=== PATIENT | male | born 1950 | race Caucasian/White ===

== ENCOUNTER → 2022-01-12 14:42 | Outpatient (CLI) | payer MEDICARE, SELFPAY ==
--- NOTE | ~2022-01-12 | XR_ITS ---
XR chest 2V 01/12/2022 15:04 Indication: Covid 19. Dyspnea. Procedure: 2 view chest Comparison: No prior studies for comparison. Findings: Subtle patchy bilateral airspace disease, compatible with pneumonia. Heart size normal. No significant effusion or pneumothorax. No acute osseous abnormality. Impression: 1: Subtle patchy bilateral airspace disease, compatible with pneumonia. Reviewed, dictated and finalized at location B. Impression: 1: Subtle patchy bilateral airspace disease, compatible with pneumonia.
== END ==
PROVIDERS: PCP Family Medicine Adolescent Medicine; Visit Provider Family Medicine Adolescent Medicine
DX: U07.1 COVID-19 (principal); J12.82 Pneumonia due to coronavirus disease 2019; R06.00 Dyspnea, unspecified; R91.8 Other nonspecific abnormal finding of lung field
CPT/HCPCS: 71046

== ENCOUNTER 2024-06-29 14:36 | Outpatient (CLI) | payer MEDICARE, SELFPAY ==
--- NOTE | 2024-06-29 14:43 | ECHO_ITS ---
Patient Info Name: Gurmeet Pardo Age: 74 years : 1950 Gender: Male Ht: 75 in Wt: 261 lbs BSA: 2.53 m2 HR: 75 bpm BP: 126 / 56 mmHg Heart Rhythm: Sinus Rhythm Technical Quality: Good Exam Date: 06/29/2024 3:04 PM Exam Location: Echo Lab Patient Status: Outpatient Admit Date: 06/29/2024 Staff Ordering Physician: Diego Rangel DO Recruiting Intern: Edgar Colon RDCS Attending Provider: Diego Rangel DO Referring Physician: Juan Carlos TEE; Exam Type: CA echo doppler color flow Study Info Indications - heart disease, unspecified Complete two-dimensional, color flow and Doppler transthoracic echocardiogram is performed. Summary 1. Complete two-dimensional, color flow and Doppler transthoracic echocardiogram is performed. 2. Left ventricular chamber dimension is normal. 3. Left ventricular systolic function is normal, estimated at 55-60%. 4. There is moderate concentric increased left ventricular wall thickness. 5. The left ventricular diastolic function is grade I diastolic dysfunction. 6. E/e' 10 is mildly elevated. 7. There is moderate aortic valve sclerosis. 8. There is mild aortic valve stenosis with a peak velocity of 255 cm/s, mean gradient of 17 mmHg, and aortic valve area of 1.9 cm2. 9. There is trace aortic valve regurgitation. 10. The mitral valve has mildly calcified leaflets and mildly calcified annulus. 11. There is mild mitral valve regurgitation. 12. No pulmonary hypertension, estimated pulmonary arterial systolic pressure is 21 mmHg. Left Ventricle E/e' 10 is mildly elevated. Left ventricular chamber dimension is normal. Left ventricular systolic function is normal, estimated at 55-60%. There is moderate concentric increased left ventricular wall thickness. The left ventricular diastolic function is grade I diastolic dysfunction. Right Ventricle Right ventricular chamber dimension is normal. Right ventricular systolic function is normal. Left Atria Left atrial chamber dimension is normal. Right Atria Right atrial chamber dimension is normal. Aortic Valve The aortic valve is trileaflet. There is moderate aortic valve sclerosis. There is mild aortic valve stenosis with a peak velocity of 255 cm/s, mean gradient of 17 mmHg, and aortic valve area of 1.9 cm2. There is trace aortic valve regurgitation. Pulmonic Valve There is no pulmonic regurgitation. Mitral Valve The mitral valve has mildly calcified leaflets and mildly calcified annulus. There is no mitral valve stenosis. There is mild mitral valve regurgitation. Tricuspid Valve There is no tricuspid valve regurgitation. No pulmonary hypertension, estimated pulmonary arterial systolic pressure is 21 mmHg. Pericardium/Pleural There is no pericardial effusion. Inferior Vena Cava Normal inferior vena cava with >50% collapse upon inspiration consistent with normal right atrial pressure, 5 mmHg. Aorta The aortic root size at the sinus of Valsalva is normal. Left Ventricular Outflow Tract Name Value Normal LVOT 2D LVOT Diameter 2.2 cm LVOT Doppler LVOT Peak Gradient 4 mmHg LVOT Mean Gradient 3 mmHg LVOT VTI 28 cm LVO
== END 2024-06-29 14:37 | disposition home or self-care (01) ==
PROVIDERS: PCP Family Medicine Adolescent Medicine; Visit Provider Internal Medicine Cardiovascular Disease
DX: I08.0 Rheumatic disorders of both mitral and aortic valves (principal)
CPT/HCPCS: 93306

== ENCOUNTER 2025-02-25 08:24 | Outpatient (CLI) | payer MEDICARE, SELFPAY ==
--- NOTE | 2025-02-25 08:28 | ECHO_ITS ---
Patient Info Name: Gurmeet Pardo Age: 75 years : 1950 Gender: Male Ht: 75 in Wt: 270 lbs BSA: 2.58 m2 HR: 72 bpm BP: 137 / 61 mmHg Technical Quality: Fair Exam Date: 02/25/2025 8:57 AM Exam Location: Echo Lab Patient Status: Outpatient Admit Date: 02/25/2025 Staff Ordering Physician: Diego Rangel DO Secondary Market Manager: Irma Hunter RDCS Attending Provider: Diego Rangel DO Referring Physician: Juan Carlos TEE; Exam Type: CA echo doppler color flow Study Info Indications I35.0 - Nonrheumatic aortic (valve) stenosis Complete two-dimensional, color flow and Doppler transthoracic echocardiogram is performed. Summary 1. Complete two-dimensional, color flow and Doppler transthoracic echocardiogram is performed. 2. Left ventricular chamber dimension is normal. 3. Left ventricular systolic function is normal, estimated at 55-60%. 4. There is moderate concentric increased left ventricular wall thickness. 5. The left ventricular diastolic function is grade I diastolic dysfunction. 6. E/e' 19 is elevated. 7. Left atrial chamber dimension is moderately enlarged. 8. There is severe aortic valve sclerosis. 9. There is moderate aortic valve stenosis with a peak velocity of 265 cm/s, mean gradient of 19 mmHg, and aortic valve area of 1.0 cm2. 10. The mitral valve has severely calcified annulus. 11. There is trace mitral valve regurgitation. 12. There is trace tricuspid valve regurgitation. 13. No pulmonary hypertension, estimated pulmonary arterial systolic pressure is 32 mmHg. Left Ventricle E/e' 19 is elevated. Left ventricular chamber dimension is normal. Left ventricular systolic function is normal, estimated at 55-60%. There is moderate concentric increased left ventricular wall thickness. The left ventricular diastolic function is grade I diastolic dysfunction. Right Ventricle Right ventricular chamber dimension is normal. Right ventricular systolic function is normal. Left Atria Left atrial chamber dimension is moderately enlarged. Right Atria Right atrial chamber dimension is normal. Aortic Valve The aortic valve is trileaflet. There is severe aortic valve sclerosis. There is moderate aortic valve stenosis with a peak velocity of 265 cm/s, mean gradient of 19 mmHg, and aortic valve area of 1.0 cm2. There is no aortic valve regurgitation. Pulmonic Valve There is no pulmonic regurgitation. Mitral Valve The mitral valve has severely calcified annulus. There is no mitral valve stenosis. There is trace mitral valve regurgitation. Tricuspid Valve There is trace tricuspid valve regurgitation. No pulmonary hypertension, estimated pulmonary arterial systolic pressure is 32 mmHg. Pericardium/Pleural There is no pericardial effusion. Inferior Vena Cava Normal inferior vena cava with >50% collapse upon inspiration consistent with normal right atrial pressure, 5 mmHg. Aorta The aortic root size at the sinus of Valsalva is normal. Left Ventricular Outflow Tract Name Value Normal LVOT 2D LVOT Diameter 1.9 cm LVOT Doppler LVOT Peak Gradient 3 mmHg LVOT Mean Gradient 2 mmHg LVOT VTI 26 cm LVOT VTI/AV VTI Ratio 0.3 LVOT Stroke Volume 75 ml LVOT CO 5.5 l/min LVOT CI 2.1 l/min/m2 Pulmonic Valve Name Value Normal RVOT Doppler RVOT Peak Gradient 3 mmHg PV Doppler PV Peak Gradient 7 mmHg Mitral Valve Name Value Normal MV Doppler MV Decel [place] 748 cm/s2 MV PHT 46 ms MV Area (PHT) 4.8 cm2 4.0-5.0 MV Diastolic Function MV E Peak Velocity 118 cm/s MV A Peak Velocity 135 cm/s MV E/A 0.9 MV Decel Time 157 ms Tricuspid Valve Name Value Normal TV Regurgitation Doppler TR Peak Velocity 262 cm/s TR Peak Gradient 27 mmHg Estimated PAP/RSVP RA Pressure 5 mmHg <=5 PA Systolic Pressure 32 mmHg <36 RV Systolic Pressure 32 mmHg <36 Aorta Name Value Normal Ascending Aorta Ao Root Diameter (MM) 3.3 cm Ao Root Diam Index (MM) 1.3 cm/m2 Aortic Valve Name Value Normal AV Doppler AV Peak Velocity 265 cm/s AV Peak Gradient 28 mmHg AV Mean Gradient 19 mmHg AV VTI 75 cm AV Area (Cont Eq VTI) 1.0 cm2 >=3.0 AV Area (Cont Eq Nick) 1.1 cm2 AV Regurgitation 2D LVOT Area 2.9 cm2 Ventricles Name Value Normal LV Dimensions 2D/MM IVS Diastolic Thickness (2D) 1.7 cm 0.6-1.0 IVS Diastole Thickness (MM) 1.5 cm 0.6-1.0 LVID Diastole (2D) 4.4 cm 4.2-5.8 LVID Diastole (MM) 7.2 cm 4.2-5.8 LVIW Diastolic Thickness (2D) 1.2 cm 0.6-1.0 LVIW Diastolic Thickness (MM) 1.4 cm 0.6-1.0 LVID Systole (2D) 3.4 cm 2.5-4.0 LVID Systole (MM) 5.1 cm 2.5-4.0 LVOT Diameter 1.9 cm LV Mass (2D Cubed) 254.93 g 88.00-224.00 LV Mass Index (2D Cubed) 99 g/m2 49-115 Relative Wall Thickness (2D) 0.56 LV Mass (MM Cubed) 576.27 g 88.00-224.00 LV Mass Index (MM Cubed) 223 g/m2 49-115 Relative Wall Thickness (MM) 0.40 LV Fractional Shortening/Ejection Fraction 2D/MM LV Fractional Shortening (2D) 22 % 25-43 LV Fractional Shortening (MM) 29 % 25-43 LV EF (MM Teicholz) 55 % 52-72 LV EF (2D Teicholz) 46 % 52-72 LV Diastolic Volume (4C MOD) 184 ml LV EF (4C MOD) 38 % LV Diastolic Volume (2C MOD) 188 ml LV EF (2C MOD) 47 % LV Diastolic Volume (BP MOD) 187 ml 62-150 LV Diastolic Volume Index (BP MOD) 73 ml/m2 34-74 LV Systolic Volume (BP MOD) 109 ml 21-61 LV Systolic Volume Index (BP MOD) 42 ml/m2 11-31 LV EF (BP MOD) 42 % 52-72 LV Diastolic Length (4C) 10.6 cm LV Systolic Length (4C) 10.0 cm LV Stroke Volume (4C MOD) 70 ml Atria Name Value Normal LA Dimensions LA Dimension (MM) 4.9 cm 3.0-4.1 LA Volume (4C A-L) 109 ml LA Volume (BP A-L) 106 ml RA Dimensions RA Area (4C) 17.7 cm2 <=18.0 Report Signatures
--- OUTSIDE RECORDS SUMMARY | 2025-02-25 08:39 | XMS_ITS | Clinical Summary ---
Author Organization [facility] Address [address] [place] [address] Care Team Providers Care Grip Assembler Name Role Phone Kyler Duran MD Primary Care Provider + Kush Ugalde MD Unavailable [phone] Source Comments [facility],non-owned Affiliates and Associated Physician Practices is amultiple site organization consisting of ambulatory clinics and hospital sitesin [place], [place], [place] and [place]. This disclosure is being madepursuant to the Care Everywhere program and may not contain all information available regarding this patient. Last updated 18.[facility] DEQ Allergies No known active allergies Medications * Be aware that medications may not be up to date on this document. Alwaysverify current medications with the patient. metFORMIN ER 24hr (GLUCOPHAGE XR) 500 MG tablet Take 1 (one) tablet by mouth daily with dinner Active atorvastatin (LIPITOR) 80 MG tablet Take 1 (one) tablet by mouth at bedtime Active PARoxetine (PAXIL) 20 MG tablet Take 2 (two) tablets by mouth at bedtime 2 Active gabapentin (Neurontin) 300 MG capsule Take 1 (one) capsule by mouth 2 times daily Active traZODone (Desyrel) 100 MG tablet Take 1 (one) tablet by mouth at bedtime Active Nutritional Supplements (Glucerna Shake) LIQD Take 1 (one) Each by mouth 2 times daily 4 Active carvedilol (Coreg) 25 MG tablet Take 0.5 (one-half) tablet by mouth 2 times daily 4 Active pantoprazole EC (Protonix) 40 MG tablet Take 1 (one) tablet by mouth 2 times daily 60 tablet 3 4 Active potassium chloride ER (Klor-Con M) 20 MEQ tablet Take 1 (one) tablet by mouth daily with breakfast 30 tablet 3 4 Active furosemide (Lasix) 20 MG tablet Take 1 (one) tablet by mouth once daily 30 tablet 3 4 Active collagenase (Santyl) 250 UNIT/GM ointmentIndicati ons:Dermal Ulcer,Wound Care,Wound Healing Apply to affected area once daily Reasons: Skin Ulcer, Wound Care, Wound Healing 30 g 2 4 Active Active Problems Problem Noted Date Diagnosed Date Acute pulmonary edema 11/30/2023 Congestive heart failure, un specified HF chronicity, unspecified heart failure type 11/30/2023 Acute respiratory failure with hypoxia 4 Osteoarthritis of right knee 02/02/2022 Immunizations Immunization Administration Dates Next Due INFLUENZA VACCINE, ADJUVANTE D, QUADR. (FLUAD QUADRIVALENT; 65Y+) (AIIV4) 12/14/2023(Deferred: See Comments - see comment) INFLUENZA VACCINE, QUADR. (F LUZONE; FLULAVAL; FLUARIX; AFLURIA QUADRIVALENT; 6MO+), 0.5 ML (IIV4) 12/14/2023(Deferred: See Comments - patient's refused flu shot for now) Social History Tobacco Use Types Packs/Day Years Used Date Smoking Tobacco: Unknown Tobacco Cessation:Counseling Given: Yes AUDIT-C Answer Date Recorded Q1: How often do you have a drink containing alcohol? Patient unable to answer 12/06/2023 Q2: How many drinks containi ng alcohol do you have on a typical day when you are drinking? Patient unable to answer Q3: How often do you have si x or more drinks on one occasion? Patient unable to answer 12/06/2023 Overall Financial Resource Strain (CARDIA) Answe r Date Recorded How hard is it for you to pa y for the very basics like food, housing, medical care, and heating? Not hard at all 12/01/2023 PHQ-2 Answer Date Recorded Patient Health Questionnaire-2 Score 0 01/02/2024 [facility] Occupat ional Health - Occupational Stress Questionnaire Answer Date Recorded Do you feel stress - tense, restless, nervous, or anxious, or unable to sleep at night because your mind is troubled all the time - these days? Patient unable to answer 12/06/2023 Hunger Vital Sign Answer Date Recorded Within the past 12 months, y ou worried that your food would run out before you got the money to buy more. Never true 12/01/19 24 Within the past 12 months, t he food you bought just didn't last and you didn't have money to get more. Never true 12/01/2023 PRAPARE - Transportation Answer Date Re corded In the past 12 months, has l ack of transportation kept you from medical appointments or from getting medications? No 10/2023 In the past 12 months, has l ack of transportation kept you from meetings, work, or from getting things needed for daily living? No 12/01/2023 Housing Stability Vital Sign Answer Bryn e Recorded In the last 12 months, was t here a time when you were not able to pay the mortgage or rent on time? No 12/06/2023 In the last 12 months, how many places have you lived? 1 12/06/2023 In the last 12 months, was t here a time when you did not have a steady place to sleep or slept in a group home (including now)? No 12/06/2023 Sex and Gender Information Value Date Recorded Sex Assigned at Not on file Legal Sex Male 6:59 AM GREEN CHAIN MARKER Gender Identity Not on file Sexual Orientation Not on file Last Filed Vital Signs Vital Sign Reading Time Taken Comments Blood Pressure 124/58 01/12/2024 11:16 AM CDT Pulse 98 01/12/2024 11:16 AM CDT Temperature 36.3 C (97.4 F) 01/12/2024 5:20 AM CDT Respiratory Rate 18 01/12/2024 11:1 6 AM CDT Oxygen Saturation 98% 01/12/2024 11: 16 AM CDT Inhaled Oxygen Concentration 40% 12/28/2023 4:00 AM GREEN CHAIN MARKER Weight 117.8 kg (259 lb 12. 8 oz) 01/07/2024 4:00 AM GREEN CHAIN MARKER Height 190.5 cm (6' 3 ) 01/03/2024 4:09 AM GREEN CHAIN MARKER reentered for BMI Body Mass Index 32.47 01/03/2024 4:09 AM GREEN CHAIN MARKER Plan of Treatment Health Maintenance Due Date Last Done Comments HEPATITIS C SCREENING 02/01/1967 DTAP/TDAP/TD VACCINES (1 - Tdap) 02/06/1968 PNEUMOCOCCAL VACCINE 50+ (1 of 1 - PCV) 1999 ZOSTER VACCINE (1 of 2) 1999 Respiratory Syncytial Virus (RSV) Vaccine Pt: or over 60 yrs (1 - 1-dose 75+ series) 02/06/2024 COVID-19 VACCINE (1 - season) 2024 DEPRESSION SCREENING 10/31/2024 MEDICARE AWV CALENDAR YEAR 2024 INFLUENZA VACCINE (Season Ended) 2025 08/17/2022, 08/21/2020, 10/09/2019, Additional history exists HEPATITIS B VACCINE Aged Out No longe r eligible based on patient's age to complete this topic HIB VACCINE Aged Out No longer eligi ble based on patient's age to complete this topic HPV VACCINE Aged Out No longer eligi ble based on patient's age to complete this topic MENINGOCOCCAL (Group B) VACCINE SHARED DECISION-MAKING Aged Out No longer eligible based on patient's age to complete this topic MENINGOCOCCAL GROUPS A/C/Y/W VACCINE Aged Out No longer eligible based on patient's age to complete this topic Additional Health Concerns Infection Onset Date Last Indicated MRSA Hx Comment:sputum 12/28/2023 01/03/2024 Insurance [facility] MANAGED MEDICARE ADV Advance Directives * Full Code (Latest Code Status on File) Date Activated Date Inactivated Comments 11/30/2023 6:52 PM 01/12/2024 4:02 PM Care Teams Grip Assembler Relationship Specialty Start Date End Date Kyler Duran MD [address] [place] [address] PCP - General Family Medicine 05/11/22 [place] [id number] [id number] Surgeon Orthopedic Surgery 05/11/22
--- OUTSIDE RECORDS SUMMARY | 2025-02-25 08:39 | XMS_ITS | CONTINUITY OF CARE DOCUMENT ---
Author Name franklinsaundra franklinsaundra Address Unknown Organization [facility] Address [address] [place] [address] Phone [phone] Care Team Providers Care Hardware Manager Name Role Phone Spencer Casas MD Unavailable [phone] NAHUN CADE MD Unavailable [phone] NAHUN CADE MD Unavailable PROBLEMS Condition Status Date Provider Notes Prediabetes-03/08/22 Glu 207 active Benito priest RN LAE active Elissa Jimenez Aortic stenosis, mild active Elissa apgeeyer HTN active Spencer Casas MD Hyperlipidemia active Spencer Casas MD CAROTID-08/07 NEG completed - Spencer Casas MD CAD - 04/2010 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, 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, 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 Spencer Casas MD Leg pain - 01/11 TRESA's MILD/MOD DISEASE B/L completed - Bartolome Alicia DIZZINESS completed - Bartolome Alicia Shortness of breath completed - Bartolome Alicia COPD active Bartolome Alicia Carotid artery stenosis, <50 % ICA b/l active Bartolome Alicia Myocardial infarction 12/1997 active Javier Garcia Obesity active Bartolome Alicia Tobacco use, quit active Bartolome Alicia PVD active Spencer Casas MD Leg edema active Elissa Jimenez CHF active Elissa Jimenez ENCOUNTERS Date Type Provider Location Encounter Diag nosis - In-person encounter Office Visit Spencer Casas MD [facility] - In-person encounter Office Visit Spencer Casas MD [facility] - In-person encounter Office Visit Spencer Casas MD [facility] - In-person encounter Office Visit Spencer Casas MD [facility] CHF - In-person encounter Office Visit Spencer Casas MD [facility] Leg edema - In-person encounter Office Visit Spencer Casas MD [facility] - In-person encounter Office Visit Spencer Casas MD [facility] Leg pain - 01/11 TRESA's MILD/MOD DISEASE B/LDIZZINESSShortness of breath - In-person encounter Office Visit Spencer Casas MD [facility] - In-person encounter Office Visit Spencer Casas MD [facility] PVD - In-person encounter Office Visit Spencer Casas MD [facility] HTNHyperlipidemiaCAD - 04/2010 CATH, 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, CIRC and OM STENTSCarotid artery stenosis, <50% ICA b/lMyocardial infarction 12/1997ObesityTobacco use, quit - In-person encounter Office Visit Spencer Casas MD [facility] CAROTID-08/07 NEGCAD - 04/2010 CATH, 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, CIRC and OM STENTSCOPD - In-person encounter Office Visit Spencer Casas MD [facility] - In-person encounter Office Visit Spencer Casas MD [facility] - In-person encounter Office Visit Spenecr Casas MD [facility] HTN - In-person encounter Office Visit Spencer Casas MD [facility] - In-person encounter Office Visit Spencer Casas MD [facility] - In-person encounter Office Visit Spencer Casas MD [facility] - In-person encounter Office Visit Yan Montelongo MD [facility] - In-person encounter Office Visit Yan Montelongo MD [facility] - In-person encounter Office Visit Spencer Casas MD [facility] DIZZINESS - In-person encounter Office Visit Spencer Casas MD [facility] CAD - 04/2010 CATH, 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, CIRC and OM STENTSLeg pain - 01/11 TRESA's MILD/MOD DISEASE B/L - In-person encounter Office Visit Spencer Casas MD [facility] Hyperlipidemia - In-person encounter Office Visit Spencer Casas MD [facility] Hyperlipidemia VITAL SIGNS Date Observation Value Provider Body Mass Index (Ratio) 37.10 kg/m2 Carolyne Stephen blood pressure, cuff size regular [facility] [place] blood pressure, diastolic 69 mm[Hg] [facility] [place] blood pressure, systolic 175 mm[Hg] [facility] pulse rate 68 /min [facility] oxygen saturation, oximetry 96 % [facility] respiratory rate E&M 15 /min Liana Bone illecassidy weight E&M 289 [lb_av] [facility] height E&M 74 [in_i] [facility] Body Mass Index (Ratio) 37.36 kg/m2 Spencer Casas MD blood pressure, cuff size regular [facility] blood pressure, diastolic 75 mm[Hg] Ja rret blood pressure, systolic 161 mm[Hg] Jar ret pulse rate 74 /min Gokul respiratory rate E&M 16 /min Gokul oxygen saturation, oximetry 94 % weight E&M 291 [lb_av] Gokul height E&M 74 [in_i] Gokul Body Mass Index (Ratio) 38.13 kg/m2 Grah robbie Stephen blood pressure, diastolic 78 mm[Hg] [place] [facility] blood pressure, systolic 170 mm[Hg] Suzette blood pressure, cuff size regular [facility] blood pressure, diastolic 78 mm[Hg] Ja rret blood pressure, systolic 170 mm[Hg] Lui pulse rate 75 /min Gokul respiratory rate E&M 12 /min Gokul oxygen saturation, oximetry 95 % weight E&M 297 [lb_av] Gokul height E&M 74 [in_i] Gokul Body Mass Index (Ratio) 36.82 kg/m2 Ayleen Jimenez blood pressure, diastolic -1 mm[Hg] [place] hitchcockLogrick blood pressure, systolic 167 mm[Hg] Suzette Lewisogrick blood pressure, diastolic 74 mm[Hg] St isabel Russo blood pressure, systolic 167 mm[Hg] Alyson Russo oxygen saturation, oximetry 96 % Katy Russo respiratory rate E&M 16 /min Katy mock pulse rate 75 /min Katy Russo weight E&M 286.8 [lb_av] Katy Russo height E&M 74 [in_i] Katy Russo blood pressure, diastolic 64 mm[Hg] Sa ra Jones blood pressure, systolic 149 mm[Hg] Josh a Jones oxygen saturation, oximetry 95 % Odalys Jones respiratory rate E&M 16 /min Odalys Si ms pulse rate 84 /min Odalys Jones blood pressure, cuff size regular Sa ra Jones height E&M 74 [in_i] Odalys Jnoes Body Mass Index (Ratio) 37.61 kg/m2 Ayleen enriquez Barbara blood pressure, diastolic 84 mm[Hg] Li nkLogic blood pressure, systolic 142 mm[Hg] Suzette kLogic blood pressure, cuff size large Mi steffany [place] blood pressure, diastolic 84 mm[Hg] Mi steffany [place] blood pressure, systolic 142 mm[Hg] Fritz keyla [place] oxygen saturation, oximetry 99 % Lesly Alicea respiratory rate E&M 16 /min Zahra Alicea pulse rate 79 /min Lesly marlow weight E&M 293 [lb_av] Lesly marlow height E&M 74 [in_i] Lesly marlow Body Mass Index (Ratio) 37.10 kg/m2 Suman Alicia blood pressure, resting Yes Suman Alicia blood pressure, diastolic 76 mm[Hg] Fe clarke Post blood pressure, systolic 148 mm[Hg] Fel icia Post oxygen saturation, oximetry 96 % Sena Psot pulse rate 79 /min Sena Post respiratory rate E&M 16 /min Sena Post temperature E&M 97.2 [degF] Sena Post weight E&M 289 [lb_av] Sena Post height E&M 74 [in_i] Sena Post Body Mass Index (Ratio) 36.07 kg/m2 Jake South pulse rate 102 /min Coretta Randall l oxygen saturation, oximetry 16 % Coretta Agustin respiratory rate E&M 102 /min Coretta Agustin blood pressure, cuff size regular Cy belinda Agustin blood pressure, diastolic 80 mm[Hg] Cy belinda Agustin blood pressure, systolic 162 mm[Hg] Fransisca arlin Agustin weight E&M 281 [lb_av] Coretta Mylesbel l height E&M 74 [in_i] Coretta Campbel l Body Mass Index (Ratio) 36.84 kg/m2 Suman Alicia blood pressure, diastolic 96 mm[Hg] Da fransisca Sunny blood pressure, systolic 182 mm[Hg] Dac ia Sunny oxygen saturation, oximetry 95 % Claribel Sunny respiratory rate E&M 18 /min Claribel V oss pulse rate 88 /min Claribel Sunny weight E&M 287 [lb_av] Claribel Sunny height E&M 74 [in_i] Claribel Sunny Body Mass Index (Ratio) 37.23 kg/m2 Suman Alicia weight E&M 290 [lb_av] Spencer Casas MD blood pressure, resting Yes Spencer Casas MD blood pressure, cuff size large Annmarie Hull blood pressure, diastolic 90 mm[Hg] Annmarie Hull blood pressure, systolic 160 mm[Hg] Ruchi Hull oxygen saturation, oximetry 96 % Ana Hull respiratory rate E&M 16 /min Ana Hull pulse rate 88 /min Ana Hull height E&M 74 [in_i] Ana Hull blood pressure, diastolic 80 mm[Hg] Leroy Smith Hilton blood pressure, systolic 154 mm[Hg] Debbie Hilton pulse rate 92 /min Mo bahena oxygen saturation, oximetry 96 % Mo Hilton respiratory rate E&M 18 /min Machelle Hilton Body Mass Index (Ratio) 38 kg/m2 Marnie Hilton weight E&M 296 [lb_av] Mo Downs ellenfaith Body Mass Index (Ratio) 37.49 kg/m2 Sloan shavonne Ridley blood pressure, diastolic 68 mm[Hg] Ke rri Khai blood pressure, systolic 150 mm[Hg] Reba Ridley pulse rate 61 /min Janell loredoer oxygen saturation, oximetry 96 % Janell Ridley respiratory rate E&M 16 /min Janell regalado weight E&M 292 [lb_av] Janell Ling lder weight E&M 292 [lb_av] Spencer Casas MD blood pressure, diastolic 62 mm[Hg] Isaac Chance RN blood pressure, systolic 140 mm[Hg] Benito Chance RN pulse rate 92 /min Benito Chance RN oxygen saturation, oximetry 98 % Benito Chance RN respiratory rate E&M 16 /min Benito harper RN Body Mass Index (Ratio) 35.69 kg/m2 Sloan shavonne Ridley blood pressure, diastolic 66 mm[Hg] Ke ulyssesi Khai blood pressure, systolic 132 mm[Hg] Reba Ridley pulse rate 78 /min Janell Hernandeztammy loredoer oxygen saturation, oximetry 95 % Janell Khia respiratory rate E&M 16 /min Janell Greene fabricio weight E&M 277 [lb_av] Janell Sushil lder height E&M 74 [in_i] Janell Sushil lder blood pressure, diastolic 68 mm[Hg] Isaac Chance RN blood pressure, systolic 131 mm[Hg] Benito Chance RN pulse rate 75 /min Benito Chance RN oxygen saturation, oximetry 95 % Benito Chance RN respiratory rate E&M 16 /min Benito harper RN weight E&M 282 [lb_av] Benito Chance RN blood pressure, diastolic 67 mm[Hg] Isaac Chance RN blood pressure, systolic 131 mm[Hg] Benito Chance RN pulse rate 80 /min Benito Chance RN oxygen saturation, oximetry 95 % Benito Chance RN respiratory rate E&M 18 /min Benito harper RN weight E&M 287 [lb_av] Benito Chance RN blood pressure, diastolic 73 mm[Hg] Jermey Vyas blood pressure, systolic 127 mm[Hg] Walter Vyas pulse rate 89 /min Sarah Vyas oxygen saturation, oximetry 96 % Sarah Vyas respiratory rate E&M 16 /min Fadi Vyas weight E&M 271 [lb_av] Sarah Vyas blood pressure, diastolic, left arm 70 mm [Hg] Yue Choi blood pressure, systolic, left arm 103 mm [Hg] Yue Cohi blood pressure, diastolic, right arm 62 m m[Hg] Yue Choi blood pressure, systolic, right arm 87 mm [Hg] Yue Choi blood pressure, diastolic 70 mm[Hg] Ca christa Jimbo blood pressure, systolic 109 mm[Hg] Car linh Jimbo pulse rate 114 /min Yue Choi oxygen saturation, oximetry 95 % Yue Choi respiratory rate E&M 20 /min Yue Dipika acevedo weight E&M 268 [lb_av] Yue Choi blood pressure, diastolic 65 mm[Hg] Mikayla seph [place] blood pressure, systolic 138 mm[Hg] Ayden cox [place] pulse rate 90 /min Hiram [place] oxygen saturation, oximetry 97 % Hiram [place] respiratory rate E&M 16 /min Hiram [place] weight E&M 271 [lb_av] Hiram [place] blood pressure, diastolic 69 mm[Hg] Isaac Chance RN blood pressure, systolic 129 mm[Hg] Benito Chance RN pulse rate 77 /min Benito Chance RN oxygen saturation, oximetry 96 % Benito Chance RN respiratory rate E&M 16 /min Benito harper RN weight E&M 278 [lb_av] Benito Chance RN pulse rate 90 /min Benito Chance RN oxygen saturation, oximetry 95 % Benito Chance RN blood pressure, diastolic 71 mm[Hg] Isaac Chance RN blood pressure, systolic 130 mm[Hg] Benito Chance RN respiratory rate E&M 22 /min Benito harper RN weight E&M 275 [lb_av] Benito Chance RN blood pressure, diastolic 66 mm[Hg] Isaac Chance RN blood pressure, systolic 127 mm[Hg] Benito Chance RN pulse rate 76 /min Benito Chance RN oxygen saturation, oximetry 97 % Benito Chance RN respiratory rate E&M 18 /min Oct Dajuan harper RN weight E&M 270 [lb_av] Benito Robson [facility] Allergy Name Onset Date Reaction Criticality Status JARDIANCE infection High Criticality active RESULTS Date Observation Value Provider Reference Range Interpretation Location hemoglobin A1C, blood, as % of total hemoglobin 5.4 % OF TOTAL HGB [facility] <5.7 Normal C-reactive protein, by highly sensitive test 1.1 mg/L [facility] Normal calcium, serum 9.6 mg/dL [facility] 8.6-10.3 Normal carbon dioxide, venous blood 30 mmol/L [facility] 20-32 Normal chloride, serum 100 mmol/L [facility] 98-110 Normal potassium, serum 5.1 mmol/L [facility] 3.5-5.3 Normal sodium, serum 136 mmol/L [facility] 135-146 Normal urea nitrogen/creatinine ratio, serum SEE NOTE: (calc) [facility] 6-22 creatinine, serum 0.83 mg/dL [facility] 0.70-1.28 Normal urea nitrogen, blood 18 mg/dL [facility] 7-25 Normal blood glucose, random 121 mg/dL [facility] 65-139 Normal NT-pro BNP 1007 [facility] <125 High cholesterol, non-HDL, total 77 MG/DL (CALC) [facility] <130 Normal cholesterol/HDL ratio, serum, percent 2.3 (calc) [facility] <5.0 Normal LDL cholesterol, serum 61 MG/DL (CALC) [facility] Normal triglyceride, serum, fasting 79 mg/dL [facility] <150 Normal HDL cholesterol, serum 61 mg/dL [facility] > OR = 40 Normal cholesterol, serum 138 mg/dL [facility] <200 Normal microalbumin/creati nine ratio, urine 39 MCG/MG CREAT [facility] <30 High microalbumin/total urine volume 40 mg/L [facility] Units converted. See lab report for original value. Normal creatinine, random, urine 102 mg/dL [facility] 20-320 Normal NT-pro BNP 775 [facility] High calcium, serum 9.8 mg/dL [facility] 8.6-10.3 Normal carbon dioxide, venous blood 30 mmol/L [facility] 20-32 Normal chloride, serum 97 mmol/L [facility] 98-110 Low potassium, serum 4.6 mmol/L [facility] 3.5-5.3 Normal sodium, serum 135 mmol/L [facility] 135-146 Normal urea nitrogen/creatinine ratio, serum 23 (calc) [facility] 6-22 High Estimated Glomerular Filtration Rate (calc) 114 mL/min/{1.73_ m2} [facility] > OR = 60 Normal creatinine, serum 0.62 mg/dL [facility] 0.70-1.18 Low urea nitrogen, blood 14 mg/dL [facility] 7-25 Normal blood glucose, random 207 mg/dL [facility] 65-139 High alanine aminotransferase (SGPT), serum 22 1/L [facility] 0-44 aspartate aminotransferase (SGOT), serum 20 1/L [facility] 0-40 alkaline phosphatase, serum 69 1/L [facility] 39-117 bilirubin, serum, direct 0.23 mg/dL [facility] 0.00-0.40 bilirubin, serum, total 0.9 mg/dL [facility] 0.0-1.2 albumin, serum 4.7 g/dL [facility] 3.6-4.8 protein, total, serum 7.4 g/dL [facility] 6.0-8.5 lipoprotein, beta, serum, point, quantitative, calculated 68 mg/dL [facility] 0-99 very low density lipoproteins 27 mg/dL [facility] 5-40 HDL cholesterol, serum 57 mg/dL [facility] >39 triglyceride, serum, random 136 mg/dL [facility] 0-149 cholesterol, serum 152 mg/dL [facility] 339-232 0826/03 /06 LDL cholesterol, serum 112 mg/dL [facility] hemoglobin A1C, blood, as % of total hemoglobin 6.5 % [facility] protein, total, serum 7.3 g/dL [facility] albumin, serum 4.6 g/dL [facility] bilirubin, serum, total 0.8 mg/dL [facility] alkaline phosphatase, serum 60 1/L [facility] alanine aminotransferase (SGPT), serum 22 1/L [facility] aspartate aminotransferase (SGOT), serum 20 1/L [facility] calcium, serum 9.8 mg/dL [facility] blood glucose, random 123 mg/dL [facility] creatinine, serum 0.74 mg/dL [facility] urea nitrogen, blood 16 mg/dL [facility] carbon dioxide, serum, total 27 mmol/L [facility] chloride, serum 102 mmol/L [facility] potassium, serum 5.0 mmol/L [facility] sodium, serum 139 mmol/L [facility] triglyceride, serum, fasting 202 mg/dL [facility] HDL cholesterol, serum 57 mg/dL [facility] LDL cholesterol, serum 69 mg/dL [facility] cholesterol, serum 166 mg/dL [facility] LDL/HDL (low-density lipoprotein/high-de nsity lipoprotein) ratio 1.8 RATIO [facility] 0.2-4.3 Normal VLDL cholesterol 30 mg/dL [facility] 8-41 Normal lipoprotein, beta, serum, point, quantitative, calculated 112 mg/dL [facility] 0-130 Normal cholesterol/HDL ratio, serum, percent 3.3 ratio [facility] 1.5-5.6 Normal HDL cholesterol, serum 63 mg/dL [facility] 55 Normal triglyceride, serum, fasting 150 mg/dL LinkLog Normal cholesterol, serum 205 mg/dL [facility] 0-199 High basophils as percent of blood leukocytes 0.7 % [facility] Normal eosinophils as percent of blood leukocytes 2.0 % [facility] Normal monocyte count, blood 6.2 % [facility] Normal lymphocyte count, blood 29.8 % [facility] Normal neutrophils as percent of blood leukocytes 61.3 % [facility] Normal basophils, absolute, manual 50 cells/mcL [facility] 0-200 Normal eosinophils, absolute, manual 142 cells/mcL [facility] 15-500 Normal monocytes, absolute, manual 440 cells/mcL [facility] 200-950 Normal lymphocytes, absolute 2116 CELLS/UL [facility] 850-3900 Normal Absolute Neutrophil count 4352 cells/mcL [facility] 8165-6395 Normal platelet count 265 THOUSAND/UL [facility] 140-400 Normal red blood cell distribution width 13.9 % [facility] 11.0-15.0 Normal mean corpuscular hemoglobin concentration, RBC 34.1 G/DL [facility] 32.0-36.0 Normal mean corpuscular hemoglobin, RBC 31.0 pg [facility] 27.0-33.0 Normal mean corpuscular volume, RBC 91.0 fL [facility] 80.0-100.0 Normal hematocrit, blood 39.9 % Link[facility] 38.5-50.0 Normal hemoglobin electrophoresis, blood 13.6 [facility] 13.2-17.1 Normal erythrocyte (RBC) count 4.38 MILLION/UL [facility] 4.20-5.80 Normal leukocyte (white blood cells) count, blood 7.1 THOUSAND/UL [facility] 3.8-10.8 Normal calcium, serum 9.3 mg/dL [facility] 8.6-10.2 Normal carbon dioxide, venous blood 25 mmol/L [facility] 21-33 Normal chloride, serum 103 mmol/L [facility] 98-110 Normal potassium, serum 4.4 mmol/L [facility] 3.5-5.3 Normal sodium, serum 138 mmol/L [facility] 135-146 Normal urea nitrogen/creatinine ratio, serum NOT APPLICABLE (calc) [facility] 6-22 Estimated Glomerular Filtration Rate (calc) >60 mL/min/1.73m2 [facility] > OR = 60 Normal creatinine, serum 0.88 mg/dL [facility] 0.76-1.46 Normal urea nitrogen, blood 16 mg/dL [facility] 7-25 Normal blood glucose, random 112 mg/dL [facility] 65-99 High thyroid stimulating hormone, serum 0.77 u[IU]/mL [facility] 0.40-4.50 Normal free thyroxine index 2.6 [facility] 1.4-3.8 Normal thyroxine, serum, total 9.0 ug/dL [facility] 4.5-12.5 Normal triiodothyronine resin uptake 29 % [facility] 22-35 Normal cholesterol/HDL ratio, serum, percent 3.5 (calc) [facility] < OR = 5.0 Normal LDL cholesterol, serum 104 MG/DL (CALC) [facility] <130 Normal triglyceride, serum, fasting 101 mg/dL [facility] <150 Normal HDL cholesterol, serum 49 mg/dL [facility] > OR = 40 Normal cholesterol, serum 173 mg/dL [facility] 125-200 Normal platelet count 264 THOUSAND/UL [facility] 140-400 Normal red blood cell distribution width 13.2 % [facility] 11.0-15.0 Normal mean corpuscular hemoglobin concentration, RBC 34.6 G/DL [facility] 32.0-36.0 Normal mean corpuscular hemoglobin, RBC 30.4 pg [facility] 27.0-33.0 Normal mean corpuscular volume, RBC 87.9 fL [facility] 80.0-100.0 Normal hematocrit, blood 40.0 % [facility] 38.5-50.0 Normal hemoglobin electrophoresis, blood 13.8 [facility] 13.2-17.1 Normal erythrocyte (RBC) count 4.55 MILLION/UL [facility] 4.20-5.80 Normal leukocyte (white blood cells) count, blood 12.7 THOUSAND/UL [facility] 3.8-10.8 High calcium, serum 9.2 mg/dL [facility] 8.6-10.2 Normal carbon dioxide, venous blood 24 mmol/L [facility] 21-33 Normal chloride, serum 102 mmol/L [facility] 98-110 Normal potassium, serum 4.2 mmol/L [facility] 3.5-5.3 Normal sodium, serum 138 mmol/L [facility] 135-146 Normal urea nitrogen/creatinine ratio, serum NOT APPLICABLE (calc) [facility] 6-22 Estimated Glomerular Filtration Rate (calc) >60 mL/min/1.73m2 [facility] > OR = 60 Normal creatinine, serum 0.80 mg/dL [facility] 0.50-1.30 Normal urea nitrogen, blood 19 mg/dL [facility] 7-25 Normal blood glucose, random 111 mg/dL [facility] 65-99 High HISTORY OF MEDICATION USE Medication Status Instructions Dates Provider Indications Com ments losartan 50 mg tablet active TAKE 1 TABLET BY MOUTH EVERY DAY Spencer Casas MD Jardiance 10 mg tablet completed Take 1 tablet by mouth once a day - Spencer Casas MD paroxetine HCl 20 mg tablet active Spencer Casas MD clopidogrel 75 mg tablet active TAKE 1 TABLET BY MOUTH ONCE DAILY NEED APPOINTMENT FOR REFILLS Ethel Mendezaughlin clopidogrel 75 mg tablet completed TAKE 1 TABLET BY MOUTH ONCE DAILY . APPOINTMENT REQUIRED FOR FUTURE REFILLS - Ethel Mendezaughlin atorvastatin 80 mg tablet active TAKE 1 TABLET BY MOUTH ONCE DAILY AT BEDTIME furosemide 80 mg tablet active Take 1 tablet by mouth once a day Spencer Casas MD carvedilol 25 mg tablet active Take 1 tablet by mouth twice daily Gokul clopidogrel 75 mg tablet completed TAKE 1 TABLET BY MOUTH ONCE DAILY NEEDS APPOINTMENT - Ethel Estephania metformin 500 mg tablet active Take 1 tablet by mouth every night Claribel Sunny atorvastatin 80 mg tablet completed Take 1 tablet by mouth every night - Mo Hilton LIPITOR 80 MG ORAL TABLET completed ONE TAB. DAILY - Marnie Hull RN carvedilol 25 mg tablet completed Take 1 tablet by mouth twice a day - Elissa Jimenez clopidogrel 75 mg tablet completed Take 1 tablet by mouth once a day - Elissa Jimenez ASPIRIN 325 MG ORAL TABLET completed ONE TAB. DAILY - Janell Ridley NEXIUM 40 MG ORAL CAPSULE DELAYED RELEASE completed ONE TAB. DAILY - Spencer Casas MD SIMVASTATIN 40 MG ORAL TABLET completed ONE TAB. DAILY - Marnie Hull RN lisinopril 40 mg tablet completed TAKE 1 TABLET BY MOUTH ONCE DAILY - Spencer Casas MD Paxil 30 mg tablet completed 1 tablet by mouth once a day - Spencer Casas MD SOCIAL HISTORY Date Observation Value Provider drug use none Lei Stephen alcohol use, average drinks per day 3 /d Lei Stephen alcohol use yes Lei Zafar smoking, year quit 2007 Lei Macdonald linstephanie number of years as a smoker 35 a Lei Zafar smoking, date started 1972 Lei Zafar smoking history, tot al pack/year 49 Lei Zafar smoking history, tot al pack/day 2 Lei Zafar cigarette use yes Lei Mariana i smoking status Former smoker Lei Chávez stephanie drug use none Spencer Casas MD alcohol use, average drinks per day 3 /d Spencer Casas MD alcohol use yes Spencer Casas MD smoking, year quit 2007 Spencer rogel MD number of years as a smoker 35 a Spencer Casas MD smoking, date started 1972 Spencer Casas MD smoking history, tot al pack/year 49 Spencer Casas MD smoking history, tot al pack/day 2 Spencer Casas MD cigarette use yes Spencer Casas MD smoking status Former smoker Spencer Casas MD smoking history, tot al pack/year 50 Benito Chance RN physical exercise, frequency, days per week no Lei Zafar caffeine use, averag e drinks per day 1+ Lei Zafar smoking, year quit 2007 Lei Macdonald josselyn number of years as a smoker 35 a Lei Zafar smoking, date started 1972 Lei Zafar smoking history, tot al pack/day 2 Lei Zafar cigarette use yes Lei Quiñonezinar i smoking status Former smoker Lei Chávez stephanie social history revie wed E&M reviewed - no changes required Lei Zafar social history E&M Marital Statu s: Diana wood with family/friends E thnicity: Smoking History: Esequiel joe is a former smoker. Spencer Casas MD social history revamparo lombardi E&M reviewed - no changes required Spencer Casas MD physical exercise, frequency, days per week no Katy Karan caffeine use, averag e drinks per day 1+ Katy Karan smoking, year quit 2007 Katy Baird ana lilia number of years as a smoker 35 a Katy Karan smoking, date started 1972 Katy Karan smoking history, tot al pack/day 2 Katy Karan cigarette use yes Katy Karan smoking status Former smoker Kayt Karan social history josé manuel lombardi E&M reviewed - no changes required Spencer Casas MD social history E&M Marital Statu s: Diana wood with family/friends E thnicity: Smoking History: Esequiel joe is a former smoker. Spencer Casas MD social history josé manuel lombardi E&M reviewed - no changes required Spencer Casas MD physical exercise, frequency, days per week no Lesly Nixon caffeine use, averag e drinks per day 1+ Lesly Alicea smoking, year quit 2007 Lesly Alicea number of years as a smoker 35 a Lesly Nixon smoking, date started 1972 Elvin Estrella smoking history, tot al pack/day 2 Lesly Alicea cigarette use yes Lesly Pastor nd smoking status Former smoker Lesly Charles mcnair physical exercise, frequency, days per week no Sena Post caffeine use, averag e drinks per day 1+ Sena Post smoking, year quit 2007 Sena F ox number of years as a smoker 35 a Sena Post smoking, date started 1972 Felici a Post smoking history, tot al pack/day 2 Sena Post cigarette use yes Sena Post smoking status Former smoker Sena Post social history E&M Marital Statu s: Diana wood with family/friends E thnicity: Smoking History: Esequiel joe is a former smoker. Spencer Casas MD social history revie wed E&M reviewed - no changes required Spencer Casas MD number of grandchildren Spencer Casas MD physical exercise, frequency, days per week no Coretta Agustin caffeine use, averag e drinks per day 1+ Coretta Vamsi smoking, year quit 2007 Coretta Jose porras number of years as a smoker 35 a Coretta Agustin smoking, date started 1972 Fransiscalinda berry Vamsi smoking history, tot al pack/day 2 Coretta Agustin cigarette use yes Coretta Mylesjustin correa smoking status Former smoker Coretta Myles seay social history revie wed E&M reviewed - no changes required Spencer Casas MD physical exercise, frequency, days per week no Claribel Sunny alcohol counseling yes Claribel Vick s alcohol use, average drinks per day 3 /d Claribel Sunny alcohol use yes Claribel Sunny caffeine use, averag e drinks per day 1+ Claribel Sunny drug use none Claribel Sunny smoking, year quit 2007 Claribel Vick s number of years as a smoker 35 a Claribel Sunny smoking, date started 1972 Claribel Sunny smoking history, tot al pack/day 2 Claribel Sunny cigarette use yes Claribel Sunny smoking status Former smoker Claribel Sunny smoking, date started 1972 Javier Garcia alcohol counseling yes Bartolome Alicia social history revie wed E&M reviewed - no changes required Bartolome Maral social history E&M Marital Statu s: Diana wood with family/friends E thnicity: Smoking History: Esequiel joe is a former smoker. Bartolome Alicia physical exercise, frequency, days per week no Ana Hull alcohol use, average drinks per day 3 /d Ana Hull alcohol use yes Ana Hull caffeine use, averag e drinks per day 1+ Bartolome Maral drug use none Ana Hull smoking, year quit 2007 Ana Rodrigo nuñez number of years as a smoker 35 a Ana Hull smoking history, tot al pack/day 2 Ana Hull cigarette use yes Ana Hull smoking status Former smoker Ana Hull social history revie wed E&M reviewed - no changes required Bartolome Alicia social history E&M Marital Statu s: Diana wood with family/friends E thnicity: Smoking History: Esequiel joe is a former smoker. Spencer Casas MD physical exercise, frequency, days per week no Mo Hilton alcohol use, average drinks per day 3 /d Mo Hilton alcohol use yes Mo bahena caffeine use, averag e drinks per day yes Mo Hilton drug use none Mo Downs shruti smoking, year quit 2007 Mo Hilton number of years as a smoker 35 a Mo Hilton smoking history, tot al pack/day 2 Mo Hilton cigarette use yes Mo choi smoking status Former smoker Motrevor Arango smoking/tobacco cess ation, patient education and counseling yes Spencer Casas MD social history revie wed E&M reviewed - no changes required Spencer Casas MD alcohol use, average drinks per day 3 /d Janell Jeanneanhbryanna alcohol use yes Janell Ling gertrudeer number of years as a smoker 35 a Janell Chicasyessirhiannon smoking history, tot al pack/day 2 Janell Chicasyessirhiannon smoking, year quit 2007 Janell Smith yesenia cigarette use yes Janell gould smoking status Former smoker Janell kamarabryanna social history revie wed E&M reviewed Benito Chance RN smoking status former smoker Benito Coon social history revie wed E&M reviewed Benito Chance RN social history revie wed E&M reviewed Benito Chance RN social history revie wed E&M reviewed Benito Chance RN social history revie wed E&M reviewed Benito Chance RN drug use none Yan Montelongo MD social history revie wed E&M reviewed Yan Montelongo MD social history revie wed E&M reviewed Lavell Bradley social history revie wed E&M reviewed Lavell Bradley social history revie wed E&M reviewed Benito Chance RN social history E&M Marital Statu s: L nina with family/friends E thnicity: Spencer Casas MD social history revie wed E&M reviewed Benito Chance RN social history E&M Marital Statu s: L nina with family/friends E thnicity: CaucasianMarital Status: L nina with family/friends E thnicity: Spencer Casas MD social history revie wed E&M reviewed Benito Chance RN physical exercise, frequency, days per week no [employer] caffeine use, averag e drinks per day yes [employer]Log[employer] alcohol use, average drinks per day none [employer] number of years as a smoker 10 years or more [employer] smoking status Quit [employer] FUNCTIONAL STATUS Date Observation Value Provider HRA, CV Assess/Plan, Angina (inactive) Management Plan continue current therapy Lei Stephen HRA, CV Assess/Plan, Angina (inactive) Management Plan continue current therapy Spencer Casas MD HRA, CV Assess/Plan, Angina (inactive) Management Plan continue current therapy Lei Stephen HRA, CV Assess/Plan, Angina (inactive) Management Plan continue current therapy Spencer Casas MD HRA, CV Assess/Plan, Angina (inactive) Management Plan continue current therapy Spencer Casas MD HRA, CV Assess/Plan, Angina (inactive) Management Plan continue current therapy Spencer Casas MD HRA, CV Assess/Plan, Angina (inactive) Management Plan continue current therapy Bartolome Alicia HRA, CV Assess/Plan, Angina (inactive) Management Plan continue current therapy Spencer Casas MD HRA, CV Assess/Plan, Angina (inactive) Management Plan continue current therapy Spencer Casas MD HRA, CV Assess/Plan, Angina (inactive) Management Plan continue current therapy Spencer Casas MD MENTAL STATUS Date Observation Value Provider assessment of judgme nt and insight E&M Alert and oriented to time, place and person. Mood and affect are normal. Benito Chance RN assessment of judgme nt and insight E&M Alert and oriented to time, place and person. Mood and affect are normal. Benito Chance RN assessment of judgme nt and insight E&M Alert and oriented to time, place and person. Mood and affect are normal. Benito Chance RN assessment of judgme nt and insight E&M Alert and oriented to time, place and person. Mood and affect are normal. Benito Chance RN assessment of judgme nt and insight E&M Alert and oriented to time, place and person. Mood and affect are normal. Benito Chance RN assessment of judgme nt and insight E&M Alert and oriented to time, place and person. Mood and affect are normal. Yan Montelongo MD assessment of judgme nt and insight E&M Alert and oriented to time, place and person. Mood and affect are normal. Yan Montelongo MD assessment of judgme nt and insight E&M Alert and oriented to time, place and person. Mood and affect are normal. Spencer Casas MD assessment of judgme nt and insight E&M Alert and oriented to time, place and person. Mood and affect are normal. Benito Chance RN assessment of judgme nt and insight E&M Alert and oriented to time, place and person. Mood and affect are normal. Benito Chance RN assessment of judgme nt and insight E&M Alert and oriented to time, place and person. Mood and affect are normal. Benito Chance RN FAMILY HISTORY Family Member Condition Father Family History of Pr ostate Cancer: Mother Family History of Nettie ng Cancer: INSURANCE PROVIDERS Payer name Policy type / Coverage type [place] [employer] party ID A[employer] MEDICARE ADVANTAGE ([facility] COMPLETE PPO) Other [id number] ADVANCE DIRECTIVES Name Date DISCUSSED - NO DECISION MADE TREATMENT PLAN Date Name Performer [id number],SLei [id number],S,w ill obtain echo and lab work C HF class III Lei Stephen [id number],S, H is updated medication list for this problem includes: Atorvastatin 80 Mg Tablet (Atorvastatin) ..... Take 1 tablet by mouth once daily at bedtime Lei Stephen [id number],S,d enies angina will obtain f/u echo and lab work H is updated medication list for this problem includes: Lisinopril 40 Mg Tablet (Lisinopril) ..... Take 1 tablet by mouth once daily Carvedilol 25 Mg Tablet (Carvedilol) ..... Take 1 tablet by mouth twice daily Clopidogrel 75 Mg Tablet (Clopidogrel) ..... Take 1 tablet by mouth once daily need appointment for refills Lei Stephen [id number],C,W ill increase lisinopril to 40mg for better BP control. B P today: 170/78 P rior BP: 167/-1 (09/06/2022) Labs Reviewed: C reat: 0.62 (03/09/2022) C hol: 152 (09/12/2018) HDL: 57 (09/12/2018) His updated medication list for this problem includes: Lisinopril 40 Mg Tablet (Lisinopril) ..... Take 1 tablet by mouth once daily Carvedilol 25 Mg Tablet (Carvedilol) ..... Take 1 tablet by mouth twice daily Furosemide 40 Mg Tablet (Furosemide) ..... Take 1 tablet by mouth once a day Lei Stephen [id number],S,c lass III, complains of SOB and leg swelling W e will start Inpefa 200mg to treat his HFpEF. CHF class III, will obtain f/u echo and lab work H is updated medication list for this problem includes: Lisinopril 40 Mg Tablet (Lisinopril) ..... Take 1 tablet by mouth once daily Carvedilol 25 Mg Tablet (Carvedilol) ..... Take 1 tablet by mouth twice daily Clopidogrel 75 Mg Tablet (Clopidogrel) ..... Take 1 tablet by mouth once daily need appointment for refills Furosemide 40 Mg Tablet (Furosemide) ..... Take 1 tablet by mouth once a day Lei Stephen [id number],S, W eight loss advised Elissa Jimenez [id number],C, H is updated medication list for this problem includes: Atorvastatin 80 Mg Tablet (Atorvastatin) ..... Take 1 tablet by mouth once daily at bedtime Elissa Jimenez [id number],C,W e will increase lisinopril to 20 mg daily for better BP control. B P today: 167/74 P rior BP: 149/64 (02/15/2022) Labs Reviewed: C reat: 0.62 (03/09/2022) C hol: 152 (09/12/2018) HDL: 57 (09/12/2018) His updated medication list for this problem includes: Lisinopril 20 Mg Tablet (Lisinopril) ..... 1 tablet by mouth once a day Furosemide 40 Mg Tablet (Furosemide) ..... Take 1 tablet by mouth once a day Carvedilol 25 Mg Tablet (Carvedilol) ..... Take 1 tablet by mouth twice daily Elissa Barbara [id number],C, H is updated medication list for this problem includes: Lisinopril 20 Mg Tablet (Lisinopril) ..... 1 tablet by mouth once a day Carvedilol 25 Mg Tablet (Carvedilol) ..... Take 1 tablet by mouth twice daily Clopidogrel 75 Mg Tablet (Clopidogrel) ..... Take 1 tablet by mouth once daily needs appointment Elissa Barbara [id number],JoseC ontinues to be CHF class III. He would like to participate in the [facility]. We will increase lisinopril to 20 mg daily for better BP control. H is updated medication list for this problem includes: Lisinopril 20 Mg Tablet (Lisinopril) ..... 1 tablet by mouth once a day Furosemide 40 Mg Tablet (Furosemide) ..... Take 1 tablet by mouth once a day Carvedilol 25 Mg Tablet (Carvedilol) ..... Take 1 tablet by mouth twice daily Clopidogrel 75 Mg Tablet (Clopidogrel) ..... Take 1 tablet by mouth once daily needs appointment Elissa Jimenez [id number],S, W eight loss advised Elissa Jimenez [id number],C, H is updated medication list for this problem includes: Atorvastatin 80 Mg Tablet (Atorvastatin) ..... Take 1 tablet by mouth once daily at bedtime Elissa Jimenez [id number],C, P rior BP: 149/64 (02/15/2022) Labs Reviewed: C reat: 0.62 (03/09/2022) C hol: 152 (09/12/2018) HDL: 57 (09/12/2018) His updated medication list for this problem includes: Furosemide 40 Mg Tablet (Furosemide) ..... Take 1 tablet by mouth once a day Carvedilol 25 Mg Tablet (Carvedilol) ..... Take 1 tablet by mouth twice daily Lisinopril 10 Mg Tablet (Lisinopril) ..... 1 tablet by mouth once a day Elissa Barbara [id number],C,P t admits to exertional dyspnea and neuropathy pain. Echo showed normal EF. Mild and enlarged left atrium. Probnp was elevated to 700. Venous duplex was negative. I recommend he do an arterial duplex and either cardiac cath or stress test. He is not interested in any testing at this time. H is updated medication list for this problem includes: Carvedilol 25 Mg Tablet (Carvedilol) ..... Take 1 tablet by mouth twice daily Clopidogrel 75 Mg Tablet (Clopidogrel) ..... Take 1 tablet by mouth once daily needs appointment Lisinopril 10 Mg Tablet (Lisinopril) ..... 1 tablet by mouth once a day Elissa Jimenez [id number],C, W eight loss advised Elissa Jimenez [id number],C, H is updated medication list for this problem includes: Atorvastatin 80 Mg Tablet (Atorvastatin) ..... Take 1 tablet by mouth once daily at bedtime Elissa Jimenez [id number],C, B P today: 149/64 P rior BP: 142/84 (08/17/2021) Labs Reviewed: C reat: 0.74 (05/26/2016) C hol: 152 (09/12/2018) HDL: 57 (09/12/2018) His updated medication list for this problem includes: Furosemide 40 Mg Tablet (Furosemide) ..... Take 1 tablet by mouth once a day Carvedilol 25 Mg Tablet (Carvedilol) ..... Take 1 tablet by mouth twice daily Lisinopril 10 Mg Tablet (Lisinopril) ..... 1 tablet by mouth once a day Elissa Jimenez [id number],C, Pt denies SOB and chest pain. Will obtain echo, venous duplex, BMP and proBNP. His updated medication list for this problem includes: Carvedilol 25 Mg Tablet (Carvedilol) ..... Take 1 tablet by mouth twice daily Clopidogrel 75 Mg Tablet (Clopidogrel) ..... Take 1 tablet by mouth once daily needs appointment Lisinopril 10 Mg Tablet (Lisinopril) ..... 1 tablet by mouth once a day Elissa Jimenez [id number],C, T he pt had an admission to [facility] due to Covid about 2 months ago. Since then, had significant leg swelling, which has improved significantly. Pt denies SOB and chest pain. Will obtain echo, venous duplex, BMP and [facility]BNP. [facility] [id number],C, T he pt had an admission to [facility] due to Covid about 2 months ago. Since then, had significant leg swelling, which has improved significantly. Pt denies SOB and chest pain. Will obtain echo, venous duplex, BMP and [facility]BNP. [id number],S, Elissa Duff [facility] [id number],S, Elissa Duff [facility] [id number],C, H is updated medication list for this problem includes: Atorvastatin 80 Mg Tablet (Atorvastatin) ..... Take 1 tablet by mouth every night Elissa Jimenez [id number],S, N o claudication. His updated medication list for this problem includes: Clopidogrel 75 Mg Tablet (Clopidogrel) ..... Take 1 tablet by mouth once a day Elissa Jimenez [id number],C, B P today: 142/84 P rior BP: 148/76 (10/06/2020) Labs Reviewed: C reat: 0.74 (05/26/2016) C hol: 152 (09/12/2018) HDL: 57 (09/12/2018) His updated medication list for this problem includes: Lisinopril 10 Mg Tablet (Lisinopril) ..... 1 tablet by mouth once a day Carvedilol 25 Mg Tablet (Carvedilol) ..... Take 1 tablet by mouth twice a day Elissa Vasquezal [id number],S, Elissa Omega mckeon [id number],C,P t denies SOB and chest pain. Overall doing well. Will continue current medications. He is considering knee surgery. Will obtain echo to assess LVEF function. H is updated medication list for this problem includes: Lisinopril 10 Mg Tablet (Lisinopril) ..... 1 tablet by mouth once a day Carvedilol 25 Mg Tablet (Carvedilol) ..... Take 1 tablet by mouth twice a day Clopidogrel 75 Mg Tablet (Clopidogrel) ..... Take 1 tablet by mouth once a day Elissa Jimenez Cardiology Lei Stephen Cardiology Lei Stephen Cardiology: B P today: 175/69 P rior BP: 161/75 (10/03/2023) Labs Reviewed: C reat: 0.83 (08/23/2023) C hol: 138 (08/23/2023) HDL: 61 (08/23/2023) LDL: 61 MG/DL (CALC) (08/23/2023) T (08/23/2023) His updated medication list for this problem includes: Losartan 50 Mg Tablet (Losartan) ..... Take 1 tablet by mouth every day Furosemide 80 Mg Tablet (Furosemide) ..... Take 1 tablet by mouth once a day Carvedilol 25 Mg Tablet (Carvedilol) ..... Take 1 tablet by mouth twice daily Lei Stephen Cardiology:CHOL: 138 (08/23/2023) LDL: 61 MG/DL (CALC) (08/23/2023) HDL: 61 (08/23/2023) T (08/23/2023) C RP: 1.1 mg/L (08/23/2023) H is updated medication list for this problem includes: Atorvastatin 80 Mg Tablet (Atorvastatin) ..... Take 1 tablet by mouth once daily at bedtime Lei Zafar Cardiology:Pt report s no improvement of his sx with increased dose of lasix. With his hx of CAD and his current symptoms, I recommend right and left heart cath. Will start Losartan for better BP control H is updated medication list for this problem includes: Losartan 50 Mg Tablet (Losartan) ..... Take 1 tablet by mouth every day Furosemide 80 Mg Tablet (Furosemide) ..... Take 1 tablet by mouth once a day Carvedilol 25 Mg Tablet (Carvedilol) ..... Take 1 tablet by mouth twice daily Clopidogrel 75 Mg Tablet (Clopidogrel) ..... Take 1 tablet by mouth once daily need appointment for refills Lei Stephen Cardiology:Pt report s no improvement of his sx with increased dose of lasix. With his hx of CAD and his current symptoms, I recommend right and left heart cath. Will start Losartan for better BP control Lei Stephen Cardiology Spencer Casas MD Cardiology: H is updated medication list for this problem includes: Atorvastatin 80 Mg Tablet (Atorvastatin) ..... Take 1 tablet by mouth once daily at bedtime Spencer Casas MD Cardiology Spencer Casas MD Cardiology: B P today: 161/75 P rior BP: 170/78 (08/17/2023) Labs Reviewed: C reat: 0.83 (08/23/2023) C hol: 138 (08/23/2023) HDL: 61 (08/23/2023) LDL: 61 MG/DL (CALC) (08/23/2023) T (08/23/2023) The following medications were removed from the medication list: Lisinopril 40 Mg Tablet (Lisinopril) ..... Take 1 tablet by mouth once daily His updated medication list for this problem includes: Furosemide 80 Mg Tablet (Furosemide) ..... Take 1 tablet by mouth once a day Carvedilol 25 Mg Tablet (Carvedilol) ..... Take 1 tablet by mouth twice daily Spencer Casas MD Cardiology:no CP c ontinues to be SOB His updated medication list for this problem includes: Carvedilol 25 Mg Tablet (Carvedilol) ..... Take 1 tablet by mouth twice daily Clopidogrel 75 Mg Tablet (Clopidogrel) ..... Take 1 tablet by mouth once daily need appointment for refills Spencer Casas MD Cardiology:Pt contin ues to be SOB. He could not tolerate Jardiacne due to UTIs. WIll increase to lasix 80mg daily. If no improvement, will schedule cardiac cath. Echo showed that normal EF with diastolic dysfunction and mild aortic stenosis. We also discussed [facility] clinical trial. The following medications were removed from the medication list: Lisinopril 40 Mg Tablet (Lisinopril) ..... Take 1 tablet by mouth once daily His updated medication list for this problem includes: Furosemide 80 Mg Tablet (Furosemide) ..... Take 1 tablet by mouth once a day Carvedilol 25 Mg Tablet (Carvedilol) ..... Take 1 tablet by mouth twice daily Clopidogrel 75 Mg Tablet (Clopidogrel) ..... Take 1 tablet by mouth once daily need appointment for refills Spencer Casas MD Cardiology Lei Zafar Cardiology:will obta in echo and lab work C HF class III Leirobbie Stephen Cardiology: H is updated medication list for this problem includes: Atorvastatin 80 Mg Tablet (Atorvastatin) ..... Take 1 tablet by mouth once daily at bedtime Leirobbie Stephen Cardiology:denies an fatou will obtain f/u echo and lab work H is updated medication list for this problem includes: Lisinopril 40 Mg Tablet (Lisinopril) ..... Take 1 tablet by mouth once daily Carvedilol 25 Mg Tablet (Carvedilol) ..... Take 1 tablet by mouth twice daily Clopidogrel 75 Mg Tablet (Clopidogrel) ..... Take 1 tablet by mouth once daily need appointment for refills Lei Stephen Cardiology:Will incr ease lisinopril to 40mg for better BP control. B P today: 170/78 P rior BP: 167/-1 (09/06/2022) Labs Reviewed: C reat: 0.62 (03/09/2022) C hol: 152 (09/12/2018) HDL: 57 (09/12/2018) His updated medication list for this problem includes: Lisinopril 40 Mg Tablet (Lisinopril) ..... Take 1 tablet by mouth once daily Carvedilol 25 Mg Tablet (Carvedilol) ..... Take 1 tablet by mouth twice daily Furosemide 40 Mg Tablet (Furosemide) ..... Take 1 tablet by mouth once a day Lei Zafar Cardiology:class III , complains of SOB and leg swelling W e will start Inpefa 200mg to treat his HFpEF. CHF class III, will obtain f/u echo and lab work H is updated medication list for this problem includes: Lisinopril 40 Mg Tablet (Lisinopril) ..... Take 1 tablet by mouth once daily Carvedilol 25 Mg Tablet (Carvedilol) ..... Take 1 tablet by mouth twice daily Clopidogrel 75 Mg Tablet (Clopidogrel) ..... Take 1 tablet by mouth once daily need appointment for refills Furosemide 40 Mg Tablet (Furosemide) ..... Take 1 tablet by mouth once a day Lei Stephen Cardiology: W eight loss advised Elissa Jimenez Cardiology: H is updated medication list for this problem includes: Atorvastatin 80 Mg Tablet (Atorvastatin) ..... Take 1 tablet by mouth once daily at bedtime Elissa Jimenez Cardiology:We will i ncrease lisinopril to 20 mg daily for better BP control. B P today: 167/74 P rior BP: 149/64 (02/15/2022) Labs Reviewed: C reat: 0.62 (03/09/2022) C hol: 152 (09/12/2018) HDL: 57 (09/12/2018) His updated medication list for this problem includes: Lisinopril 20 Mg Tablet (Lisinopril) ..... 1 tablet by mouth once a day Furosemide 40 Mg Tablet (Furosemide) ..... Take 1 tablet by mouth once a day Carvedilol 25 Mg Tablet (Carvedilol) ..... Take 1 tablet by mouth twice daily Elissa Jimenez Cardiology: H is updated medication list for this problem includes: Lisinopril 20 Mg Tablet (Lisinopril) ..... 1 tablet by mouth once a day Carvedilol 25 Mg Tablet (Carvedilol) ..... Take 1 tablet by mouth twice daily Clopidogrel 75 Mg Tablet (Clopidogrel) ..... Take 1 tablet by mouth once daily needs appointment Elissa Jimenez Cardiology:Continues to be CHF class III. He would like to participate in the [facility]. We will increase lisinopril to 20 mg daily for better BP control. H is updated medication list for this problem includes: Lisinopril 20 Mg Tablet (Lisinopril) ..... 1 tablet by mouth once a day Furosemide 40 Mg Tablet (Furosemide) ..... Take 1 tablet by mouth once a day Carvedilol 25 Mg Tablet (Carvedilol) ..... Take 1 tablet by mouth twice daily Clopidogrel 75 Mg Tablet (Clopidogrel) ..... Take 1 tablet by mouth once daily needs appointment Elissa Jimenez Telehealth: W eight loss advised Elissa Jimenez Telehealth: H is updated medication list for this problem includes: Atorvastatin 80 Mg Tablet (Atorvastatin) ..... Take 1 tablet by mouth once daily at bedtime Elissa Jimenez Telehealth: Esequiel rior BP: 149/64 (02/15/2022) Labs Reviewed: C reat: 0.62 (03/09/2022) C hol: 152 (09/12/2018) HDL: 57 (09/12/2018) His updated medication list for this problem includes: Furosemide 40 Mg Tablet (Furosemide) ..... Take 1 tablet by mouth once a day Carvedilol 25 Mg Tablet (Carvedilol) ..... Take 1 tablet by mouth twice daily Lisinopril 10 Mg Tablet (Lisinopril) ..... 1 tablet by mouth once a day Elissa Jimenez Telehealth:Pt admits to exertional dyspnea and neuropathy pain. Echo showed normal EF. Mild and enlarged left atrium. Probnp was elevated to 700. Venous duplex was negative. I recommend he do an arterial duplex and either cardiac cath or stress test. He is not interested in any testing at this time. H is updated medication list for this problem includes: Carvedilol 25 Mg Tablet (Carvedilol) ..... Take 1 tablet by mouth twice daily Clopidogrel 75 Mg Tablet (Clopidogrel) ..... Take 1 tablet by mouth once daily needs appointment Lisinopril 10 Mg Tablet (Lisinopril) ..... 1 tablet by mouth once a day Elissa Jimenez Cardiology: W eight loss advised Elissa Jimenez Cardiology: H is updated medication list for this problem includes: Atorvastatin 80 Mg Tablet (Atorvastatin) ..... Take 1 tablet by mouth once daily at bedtime Elissa Jimenez Cardiology: B P today: 149/64 P rior BP: 142/84 (08/17/2021) Labs Reviewed: C reat: 0.74 (05/26/2016) C hol: 152 (09/12/2018) HDL: 57 (09/12/2018) His updated medication list for this problem includes: Furosemide 40 Mg Tablet (Furosemide) ..... Take 1 tablet by mouth once a day Carvedilol 25 Mg Tablet (Carvedilol) ..... Take 1 tablet by mouth twice daily Lisinopril 10 Mg Tablet (Lisinopril) ..... 1 tablet by mouth once a day Elissa Jimenez Cardiology: Pt denies SOB and chest pain. Will obtain echo, venous duplex, BMP and proBNP. His updated medication list for this problem includes: Carvedilol 25 Mg Tablet (Carvedilol) ..... Take 1 tablet by mouth twice daily Clopidogrel 75 Mg Tablet (Clopidogrel) ..... Take 1 tablet by mouth once daily needs appointment Lisinopril 10 Mg Tablet (Lisinopril) ..... 1 tablet by mouth once a day Elissa Jimenez Cardiology: T he pt had an admission to [facility] due to Covid about 2 months ago. Since then, had significant leg swelling, which has improved significantly. Pt denies SOB and chest pain. Will obtain echo, venous duplex, BMP and [facility]BNP. [facility] T he pt had an admission to [facility] due to Covid about 2 months ago. Since then, had significant leg swelling, which has improved significantly. Pt denies SOB and chest pain. Will obtain echo, venous duplex, BMP and proBNP. [facility] Elissa Jacobs eyer Cardiology [facility] eyer Cardiology: H is updated medication list for this problem includes: Atorvastatin 80 Mg Tablet (Atorvastatin) ..... Take 1 tablet by mouth every night [facility]: N o claudication. His updated medication list for this problem includes: Clopidogrel 75 Mg Tablet (Clopidogrel) ..... Take 1 tablet by mouth once a day [facility]: B P today: 142/84 P rior BP: 148/76 (10/06/2020) Labs Reviewed: C reat: 0.74 (05/26/2016) C hol: 152 (09/12/2018) HDL: 57 (09/12/2018) His updated medication list for this problem includes: Lisinopril 10 Mg Tablet (Lisinopril) ..... 1 tablet by mouth once a day Carvedilol 25 Mg Tablet (Carvedilol) ..... Take 1 tablet by mouth twice a day [facility] Elissa Jacobs eyer Cardiology:Pt denies SOB and chest pain. Overall doing well. Will continue current medications. He is considering knee surgery. Will obtain echo to assess LVEF function. H is updated medication list for this problem includes: Lisinopril 10 Mg Tablet (Lisinopril) ..... 1 tablet by mouth once a day Carvedilol 25 Mg Tablet (Carvedilol) ..... Take 1 tablet by mouth twice a day Clopidogrel 75 Mg Tablet (Clopidogrel) ..... Take 1 tablet by mouth once a day Elissa Jimenez Cardiology:He could not participate in [facility] due to being on Metformin. [facility] Cardiology:His [facility] ed medication list for this problem includes: Atorvastatin 80mg Tab (Atorvastatin calcium) ..... Take 1 tablet by mouth once daily at bedtime [facility] Cardiology:BP today: 148/76 P rior BP: 162/80 (10/17/2019) His updated medication list for this problem includes: Lisinopril 10 Mg Oral Tablet (Lisinopril) ..... One tab. daily Carvedilol 25 Mg Oral Tablet (Carvedilol) ..... One tab twice daily [facility] Cardiology:He could not participate in [facility] due to being on Metformin. [facility] Cardiology:No claudication. Suman lawson [facility] Cardiology:Doing wel l. No chest pain, SOB. Will continue current medications. His updated medication list for this problem includes: Lisinopril 10 Mg Oral Tablet (Lisinopril) ..... One tab. daily Clopidogrel Bisulfate 75 Mg Oral Tablet (Clopidogrel bisulfate) ..... Take 1 tablet by mouth once daily Carvedilol 25 Mg Oral Tablet (Carvedilol) ..... One tab twice daily [facility] Cardiology follow up :CHOL: 152 (09/12/2018) HDL: 57 (09/12/2018) Luc[facility] Cardiology follow up :BP remains high, will increase his Carvedilol to 25 mg BID. BP today: 162/80 P rior BP: 182/96 (08/30/2018) Labs Reviewed: C reat: 0.74 (05/26/2016) C hol: 152 (09/12/2018) HDL: 57 (09/12/2018) [facility] Cardiology follow up : H is updated medication list for this problem includes: Lisinopril 10 Mg Oral Tablet (Lisinopril) ..... One tab. daily Plavix 75 Mg Oral Tablet (Clopidogrel bisulfate) ..... One tab. daily Carvedilol 25 Mg Oral Tablet (Carvedilol) ..... 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 Per pt, he attributes his intermittent leg pain to arthritis, and is relatively asymptomatic. [facility] Cardiology follow up :Discussed SELECT study with pt. He is agreeable and wishes to proceed. [facility] Card[facility] follow up Spencer Casas MD Cardiology follow up :His updated medication list for this problem includes: Atorvastatin Calcium 80 Mg Oral Tablet (Atorvastatin calcium) ..... Take 1 tab po daily at bedtime Orders: L IPID PANEL (7600) H EPATIC FUNCTION PANEL (55314) Bartolome Alicia Cardiology follow up :BP today: 182/96 P rior BP: 160/90 (05/30/2017) His updated medication list for this problem includes: Lisinopril 10 Mg Oral Tablet (Lisinopril) ..... One tab. daily Coreg 12.5 Mg Oral Tablet (Carvedilol) ..... One tab. twice daily Orders: C omplete Echo (CPT-80748) S [facility] Study Home (CPT-43833) Bartolome [facility] Cardiology follow up :His updated medication list for this problem includes: Lisinopril 10 Mg Oral Tablet (Lisinopril) ..... One tab. daily Plavix 75 Mg Oral Tablet (Clopidogrel bisulfate) ..... One tab. daily Coreg 6.25 Mg Oral Tablet (Carvedilol) ..... One tab. twice daily Orders: E KG (CPT-23512) C omplete Echo (CPT-52209) Spencer Casas MD Cardiology follow up :Orders: A rterial Duplex Bi-Lower EX (CPT-59352) Spencer Casas MD Cardiology:Exercise and weight l oss advised. Bartolome Alicia Cardiology:BP today: 160/90 P rior BP: 154/80 (02/02/2016) His updated medication list for this problem includes: Lisinopril 10 Mg Tabs (Lisinopril) ..... One tab. daily Coreg 6.25 Mg Tabs (Carvedilol) ..... One tab. twice daily Bartolome Maral Cardiology:CHOL: 166 (05/26/2016) LDL: 69 (05/26/2016) HDL: 57 (05/26/2016) T (05/26/2016) His updated medication list for this problem includes: Lipitor 80 Mg Tabs (Atorvastatin calcium) ..... One tab. daily Recommending to check lipid and liver panel periodically and aim for LDL < 70. Bartolome Maral Cardiology:No chest pain or SOB. His updated medication list for this problem includes: Lisinopril 10 Mg Tabs (Lisinopril) ..... One tab. daily Plavix 75 Mg Tabs (Clopidogrel bisulfate) ..... One tab. daily Coreg 6.25 Mg Tabs (Carvedilol) ..... One tab. twice daily Bartolome Maral Cardiology:CHOL: 205 (01/02/2014) LDL: 112 (01/02/2014) HDL: 63 (01/02/2014) T (01/02/2014) His updated medication list for this problem includes: Lipitor 80 Mg Tabs (Atorvastatin calcium) ..... One tab. daily Bartolome [facility] Cardiology:BP today: 154/80 P rior BP: 150/68 (01/20/2015) His updated medication list for this problem includes: Lisinopril 10 Mg Tabs (Lisinopril) ..... One tab. daily Coreg 6.25 Mg Tabs (Carvedilol) ..... One tab. twice daily Bartolome Maral Cardiology:He denies laudication . Bartolome [facility] Cardiology:He denies chest pain Bartolome [facility] Cardiology:PFT's james wed moderate COPD. The pt will discuss it with his PCP. Bartolome Alicia f/u: H is updated medication list for this problem includes: Lisinopril 10 Mg Tabs (Lisinopril) ..... One tab. daily Aspirin 325 Mg Tabs (Aspirin) ..... One tab. daily Coreg 6.25 Mg Tabs (Carvedilol) ..... One tab. twice daily BP today: 127/73 P rior BP: 109/70 (04/20/2010) Labs Reviewed: C reat: 0.88 (05/06/2010) C hol: 173 (05/06/2010) HDL: 49 (05/06/2010) LDL: 104 MG/DL (CALC) (05/06/2010) T (05/06/2010) Yan Montelongo MD f/u Yan Montelongo MD f/u: H is updated medication list for this problem includes: Lisinopril 10 Mg Tabs (Lisinopril) ..... One tab. daily Simvastatin 40 Mg Tabs (Simvastatin) ..... One tab. daily Aspirin 325 Mg Tabs (Aspirin) ..... One tab. daily Plavix 75 Mg Tabs (Clopidogrel bisulfate) ..... One tab. daily Coreg 6.25 Mg Tabs (Carvedilol) ..... One tab. twice daily Yan Montelongo MD f/u: H is updated medication list for this problem includes: Lisinopril 10 Mg Tabs (Lisinopril) ..... One tab. daily Aspirin 325 Mg Tabs (Aspirin) ..... One tab. daily Plavix 75 Mg Tabs (Clopidogrel bisulfate) ..... One tab. daily Coreg 6.25 Mg Tabs (Carvedilol) ..... One tab. twice daily Yan Montelongo MD f/u: H is updated medication list for this problem includes: Simvastatin 40 Mg Tabs (Simvastatin) ..... One tab. daily Orders: L IPID PANEL (0121) BP today: 109/70 Prior BP: 138/65 (04/07/2009) Yan Montelongo MD f/u: H is updated medication list for this problem includes: Lisinopril 10 Mg Tabs (Lisinopril) ..... One tab. daily Simvastatin 40 Mg Tabs (Simvastatin) ..... One tab. daily Aspirin 81 Mg Tabs (Aspirin) ..... 1-2 tab. daily Plavix 75 Mg Tabs (Clopidogrel bisulfate) ..... One tab. daily Yan Montelongo MD f/u: H is updated medication list for this problem includes: Aspirin 81 Mg Tabs (Aspirin) ..... 1-2 tab. daily Plavix 75 Mg Tabs (Clopidogrel bisulfate) ..... One tab. daily Yan Montelongo MD f/u: H is updated medication list for this problem includes: Lisinopril 10 Mg Tabs (Lisinopril) ..... One tab. daily Simvastatin 40 Mg Tabs (Simvastatin) ..... One tab. daily Aspirin 81 Mg Tabs (Aspirin) ..... 1-2 tab. daily Plavix 75 Mg Tabs (Clopidogrel bisulfate) ..... One tab. daily Orders: L IPID PANEL (7600) T HYROID PANEL WITH TSH, 3RD GENERATION (7444) C BC (INCLUDES DIFF/PLT) (6399) Yan Montelongo MD f/u: H is updated medication list for this problem includes: Lisinopril 10 Mg Tabs (Lisinopril) ..... One tab. daily Aspirin 81 Mg Tabs (Aspirin) ..... 1-2 tab. daily Plavix 75 Mg Tabs (Clopidogrel bisulfate) ..... One tab. daily Orders: L IPID PANEL (7600) T HYROID PANEL WITH TSH, 3RD GENERATION (7444) C BC (INCLUDES DIFF/PLT) (6399) Yan Montelongo MD occasional lighthead edness, dizziness: H is updated medication list for this problem includes: Simvastatin 40 Mg Tabs (Simvastatin) ..... One tab. daily BP today: 138/65 Prior BP: 129/69 (10/14/2008) Lavell Bradley occasional lighthead edness, dizziness: H is updated medication list for this problem includes: Lisinopril 10 Mg Tabs (Lisinopril) ..... One tab. daily Aspirin 81 Mg Tabs (Aspirin) ..... 1-2 tab. daily BP today: 138/65 P rior BP: 129/69 (10/14/2008) Labs Reviewed: C reat: 0.80 (09/23/2008) Lavell Bradley occasional lighthead edness, dizziness: H is updated medication list for this problem includes: Lisinopril 10 Mg Tabs (Lisinopril) ..... One tab. daily Aspirin 81 Mg Tabs (Aspirin) ..... 1-2 tab. daily Plavix 75 Mg Tabs (Clopidogrel bisulfate) ..... One tab. daily Orders: H olter Monitor 24 Hr (CPT-72198) Spencer Casas MD occasional lighthead edness, dizziness: H is updated medication list for this problem includes: Lisinopril 10 Mg Tabs (Lisinopril) ..... One tab. daily Simvastatin 40 Mg Tabs (Simvastatin) ..... One tab. daily Aspirin 81 Mg Tabs (Aspirin) ..... 1-2 tab. daily Plavix 75 Mg Tabs (Clopidogrel bisulfate) ..... One tab. daily Spencer Casas MD office visit:dia Vasquez rders: A rterial Duplex Lower Extremity Bilateral (CPT-58679) Spencer Casas MD office visit: H is updated medication list for this problem includes: Lisinopril 10 Mg Tabs (Lisinopril) ..... One tab. daily Aspirin 81 Mg Tabs (Aspirin) ..... Two tab. daily BP today: 129/69 P rior BP: 130/71 (08/26/2008) Labs Reviewed: C reat: 0.80 (09/23/2008) Spencer Casas MD office visit: H is updated medication list for this problem includes: Lisinopril 10 Mg Tabs (Lisinopril) ..... One tab. daily Simvastatin 40 Mg Tabs (Simvastatin) ..... One tab. daily Aspirin 81 Mg Tabs (Aspirin) ..... Two tab. daily BP today: 129/69 Prior BP: 130/71 (08/26/2008) N uclear Stress Findings: 1. No chest pain or arrhythmias 2 . Pt had 0.[address] depression in the inferior leads and 0.9 mm upsloping in the lateral leads, NOT diagnostic for ischemia. 3 . The test is considered to be negative by ECG criteria. 4 . Moderate sized reversible inferolateral and apical reversible defect consistent with ischemia, Pts LV dilated with stress 5 . Normal LV SF with EF 57% (08/19/2008) C ardiac Cath: EF - 60%. R ecent non Q-wave myocardial infarction due to 90% stenoiss in the mid cricumflex. % CX stenosis: 40% proximal. % LAD stenosis: 30% mid. % RCA stenosis: 25% mid M Illdy elevated left heart filling pressures at 20mmHg. (01/10/1998) C ardiac Cath Comments: Successful stenting of the obtuse marginal branch with a Liberte stent. (09/24/2008) C arotid Doppler/Duplex: normal: (08/19/2008) H CT: 40.0 (09/23/2008) Platelets: 264 THOUSAND/UL (09/23/2008) R BC: 4.55 MILLION/UL (09/23/2008) BUN: 19 (09/23/2008) Creat: 0.80 (09/23/2008) Glucose: 111 (09/23/2008) N a+: 138 (09/23/2008) K+: 4.2 (09/23/2008) Cl: 102 (09/23/2008) Spencer Casas MD office visit: H is updated medication list for this problem includes: Simvastatin 40 Mg Tabs (Simvastatin) ..... One tab. daily BP today: 129/69 Prior BP: 130/71 (08/26/2008) Spencer Casas MD office visit: H is updated medication list for this problem includes: Lisinopril 10 Mg Tabs (Lisinopril) ..... One tab. daily Simvastatin 40 Mg Tabs (Simvastatin) ..... One tab. daily Aspirin 81 Mg Tabs (Aspirin) ..... Two tab. daily BP today: 129/69 Prior BP: 130/71 (08/26/2008) N uclear Stress Findings: 1. No chest pain or arrhythmias 2 . Pt had 0.[address] depression in the inferior leads and 0.9 mm upsloping in the lateral leads, NOT diagnostic for ischemia. 3 . The test is considered to be negative by ECG criteria. 4 . Moderate sized reversible inferolateral and apical reversible defect consistent with ischemia, Pts LV dilated with stress 5 . Normal LV SF with EF 57% (08/19/2008) C ardiac Cath: EF - 60%. R ecent non Q-wave myocardial infarction due to 90% stenoiss in the mid cricumflex. % CX stenosis: 40% proximal. % LAD stenosis: 30% mid. % RCA stenosis: 25% mid M Illdy elevated left heart filling pressures at 20mmHg. (01/10/1998) C ardiac Cath Comments: Successful stenting of the obtuse marginal branch with a Liberte stent. (09/24/2008) C arotid Doppler/Duplex: normal: (08/19/2008) H CT: 40.0 (09/23/2008) Platelets: 264 THOUSAND/UL (09/23/2008) R BC: 4.55 MILLION/UL (09/23/2008) BUN: 19 (09/23/2008) Creat: 0.80 (09/23/2008) Glucose: 111 (09/23/2008) N a+: 138 (09/23/2008) K+: 4.2 (09/23/2008) Cl: 102 (09/23/2008) Spencer Casas MD office visit: H is updated medication list for this problem includes: Lisinopril 10 Mg Tabs (Lisinopril) ..... One tab. daily Simvastatin 40 Mg Tabs (Simvastatin) ..... One tab. daily Aspirin 81 Mg Tabs (Aspirin) ..... Two tab. daily BP today: 129/69 Prior BP: 130/71 (08/26/2008) N uclear Stress Findings: 1. No chest pain or arrhythmias 2 . Pt had 0.[address] depression in the inferior leads and 0.9 mm upsloping in the lateral leads, NOT diagnostic for ischemia. 3 . The test is considered to be negative by ECG criteria. 4 . Moderate sized reversible inferolateral and apical reversible defect consistent with ischemia, Pts LV dilated with stress 5 . Normal LV SF with EF 57% (08/19/2008) C ardiac Cath: EF - 60%. R ecent non Q-wave myocardial infarction due to 90% stenoiss in the mid cricumflex. % CX stenosis: 40% proximal. % LAD stenosis: 30% mid. % RCA stenosis: 25% mid M Illdy elevated left heart filling pressures at 20mmHg. (01/10/1998) C ardiac Cath Comments: Successful stenting of the obtuse marginal branch with a Liberte stent. (09/24/2008) C arotid Doppler/Duplex: normal: (08/19/2008) H CT: 40.0 (09/23/2008) Platelets: 264 THOUSAND/UL (09/23/2008) R BC: 4.55 MILLION/UL (09/23/2008) BUN: 19 (09/23/2008) Creat: 0.80 (09/23/2008) Glucose: 111 (09/23/2008) N a+: 138 (09/23/2008) K+: 4.2 (09/23/2008) Cl: 102 (09/23/2008) Spencer Casas MD office visit: H is updated medication list for this problem includes: Aspirin 81 Mg Tabs (Aspirin) ..... Two tab. daily Carotid Duplex Scan: n ormal: (08/19/2008) Echocardiogram: T he left ventricular chamber size is normal. Wall thickness is increased consistent with moderate c oncentric left ventricular hypertrophy. Normal left ventricular function. LV EF is estimated at 60% M ild left atrial enlargement.There is mitral annular calcification. Myxomatous mitral valve. There is mild aortic valve c alcification. The tricuspid valve is structurally normal. The right ventricular systolic pressure (RSVP) is estimated to b e less than 30 mmHg and is within normal limits. No evidence of mitral valve regurgitation. N o evidence of aortic valve regurgitation. M inimal tricuspid regurgitation. N o evidence of pulmonic valve regurgitation. (08/19/2008) Spencer Casas MD ov: H is updated medication list for this problem includes: Simvastatin 40 Mg Tabs (Simvastatin) ..... One tab. daily BP today: 130/71 Prior BP: 127/66 (08/12/2008) Spencer Casas MD ov: H is updated medication list for this problem includes: Lisinopril 10 Mg Tabs (Lisinopril) ..... One tab. daily Aspirin 81 Mg Tabs (Aspirin) ..... Two tab. daily BP today: 130/71 P rior BP: 127/66 (08/12/2008) Spencer Casas MD ov: H is updated medication list for this problem includes: Lisinopril 10 Mg Tabs (Lisinopril) ..... One tab. daily Simvastatin 40 Mg Tabs (Simvastatin) ..... One tab. daily Aspirin 81 Mg Tabs (Aspirin) ..... Two tab. daily BP today: 130/71 Prior BP: 127/66 (08/12/2008) N uclear Stress Findings: 1. No chest pain or arrhythmias 2 . Pt had 0.[address] depression in the inferior leads and 0.9 mm upsloping in the lateral leads, NOT diagnostic for ischemia. 3 . The test is considered to be negative by ECG criteria. 4 . Moderate sized reversible inferolateral and apical reversible defect consistent with ischemia, Pts LV dilated with stress 5 . Normal LV SF with EF 57% (08/19/2008) C ardiac Cath: EF - 60%. R ecent non Q-wave myocardial infarction due to 90% stenoiss in the mid cricumflex. % CX stenosis: 40% proximal. % LAD stenosis: 30% mid. % RCA stenosis: 25% mid M Illdy elevated left heart filling pressures at 20mmHg. (01/10/1998) C ardiac Cath Comments: Successful stenting of the mid circumflex with a 3.5 x 15mm Multilink stent. (01/10/1998) C arotid Doppler/Duplex: normal: (08/19/2008) Spencer Casas MD ov: H is updated medication list for this problem includes: Lisinopril 10 Mg Tabs (Lisinopril) ..... One tab. daily Simvastatin 40 Mg Tabs (Simvastatin) ..... One tab. daily Aspirin 81 Mg Tabs (Aspirin) ..... Two tab. daily BP today: 130/71 Prior BP: 127/66 (08/12/2008) N uclear Stress Findings: 1. No chest pain or arrhythmias 2 . Pt had 0.[address] depression in the inferior leads and 0.9 mm upsloping in the lateral leads, NOT diagnostic for ischemia. 3 . The test is considered to be negative by ECG criteria. 4 . Moderate sized reversible inferolateral and apical reversible defect consistent with ischemia, Pts LV dilated with stress 5 . Normal LV SF with EF 57% (08/19/2008) C ardiac Cath: EF - 60%. R ecent non Q-wave myocardial infarction due to 90% stenoiss in the mid cricumflex. % CX stenosis: 40% proximal. % LAD stenosis: 30% mid. % RCA stenosis: 25% mid M Illdy elevated left heart filling pressures at 20mmHg. (01/10/1998) C ardiac Cath Comments: Successful stenting of the mid circumflex with a 3.5 x 15mm Multilink stent. (01/10/1998) C arotid Doppler/Duplex: normal: (08/19/2008) Spencer Casas MD ov: C arotid Duplex Scan: n ormal: (08/19/2008) Echocardiogram: T he left ventricular chamber size is normal. Wall thickness is increased consistent with moderate c oncentric left ventricular hypertrophy. Normal left ventricular function. LV EF is estimated at 60% M ild left atrial enlargement.There is mitral annular calcification. Myxomatous mitral valve. There is mild aortic valve c alcification. The tricuspid valve is structurally normal. The right ventricular systolic pressure (RSVP) is estimated to b e less than 30 mmHg and is within normal limits. No evidence of mitral valve regurgitation. N o evidence of aortic valve regurgitation. M inimal tricuspid regurgitation. N o evidence of pulmonic valve regurgitation. (08/19/2008) His updated medication list for this problem includes: Aspirin 81 Mg Tabs (Aspirin) ..... Two tab. daily Spencer Casas MD new : H is updated medication list for this problem includes: Lisinopril 10 Mg Tabs (Lisinopril) ..... One tab. daily BP today: 127/66 Orders: C omplete Echo (CPT-85439) S [facility] Study (*) Spencer Cassa MD new : H is updated medication list for this problem includes: Simvastatin 40 Mg Tabs (Simvastatin) ..... One tab. daily Spencer Casas MD new : H is updated medication list for this problem includes: Lisinopril 10 Mg Tabs (Lisinopril) ..... One tab. daily BP today: 127/66 Orders: C omplete Echo (CPT-12432) Spencer Casas MD new : H is updated medication list for this problem includes: Lisinopril 10 Mg Tabs (Lisinopril) ..... One tab. daily Simvastatin 40 Mg Tabs (Simvastatin) ..... One tab. daily Orders: E KG (CPT-77663) C arotid Duplex Bilateral (CPT-45802) S tress Test - Nuclear (03138) BP today: 127/66 Prior BP: / () C ardiac Cath: EF - 60%. R ecent non Q-wave myocardial infarction due to 90% stenoiss in the mid cricumflex. % CX stenosis: 40% proximal. % LAD stenosis: 30% mid. % RCA stenosis: 25% mid M Illdy elevated left heart filling pressures at 20mmHg. (01/10/1998) C ardiac Cath Comments: Successful stenting of the mid circumflex with a 3.5 x 15mm Multilink stent. (01/10/1998) Spencer Casas MD Date Name PROTHROMBIN TIME WIT H INR LIPID PANEL CBC (INCLUDES DIFF/P LT) BASIC METABOLIC PANE L W/EGFR PROBNP, N TERMINAL CRP, high sensitivit y LIPID PANEL Lipoprotein (a) PROBNP, N TERMINAL BASIC METABOLIC PANE L W/EGFR Microalb/Creatinine Urine, Random HEMOGLOBIN A1c BASIC METABOLIC PANE L W/EGFR Complete Echo RPM (remote patient monitoring) PROBNP, N TERMINAL BASIC METABOLIC PANE L W/EGFR Venous Doppler Bilat eral LE - Reflux Complete Echo EKG Sleep Study Home HEPATIC FUNCTION BUENO EL LIPID PANEL Complete Echo Arterial Duplex Bi-L ower EX DLCO Order - [id number] FRC Order - [id number] FVC Order - [id number] Full PFT Arterial Duplex Bi-L ower EX Complete Echo LIPID PANEL Complete Echo PSA, TOTAL PROTHROMBIN TIME WIT H INR CBC (H/H, RBC, INDIC ES, WBC, PLT) THYROID PANEL WITH T SH, 3RD GENERATION LIPID PANEL BASIC METABOLIC PANE L W/EGFR BASIC METABOLIC PANE L W/EGFR CBC (INCLUDES DIFF/P LT) THYROID PANEL WITH T SH, 3RD GENERATION LIPID PANEL Holter Monitor 24 Hr Arterial Duplex Lowe r Extremity Bilateral CBC (H/H, RBC, INDIC ES, WBC, PLT) BASIC METABOLIC PANE L W/EGFR CBC (H/H, RBC, INDIC ES, WBC, PLT) BASIC METABOLIC PANE L W/EGFR Sleep Study Stress Test - Nuclea r Complete Echo Carotid Duplex Bilat eral HISTORY OF PROCEDURES Procedure Date Procedure Name Provider Procedure Notes S tatus EKG Spencer Casas MD completed EKG Spencer Casas MD completed EKG Spencer Casas MD completed EKG Spencer Casas MD completed EKG Spencer Casas MD completed EKG Spencer Casas MD completed SNOMED-CT: [id number] Current Medications Documented Spencer Casas MD completed Schedule Followup Spencer Casas MD 1 year com pleted EKG Spencer Casas MD completed SNOMED-CT: [id number] Current Medications Documented Spencer Casas MD completed BLOOD COUNT HEMOGLOBIN Spencer Casas MD completed EKG Spencer Casas MD completed EKG Spencer Casas MD completed EKG Spencer Casas MD completed EKG Benito Chance RN completed
== END 2025-02-25 08:25 | disposition home or self-care (01) ==
PROVIDERS: PCP Family Medicine Adolescent Medicine; Visit Provider Internal Medicine Cardiovascular Disease
DX: R93.1 Abnormal findings on diagnostic imaging of heart and coronary circulation (principal); I35.0 Nonrheumatic aortic (valve) stenosis
CPT/HCPCS: 93306

== ENCOUNTER 2025-03-04 16:23 | Outpatient (CLI) | payer MEDICARE, SELFPAY ==
--- NOTE | ~2025-03-04 | US_ITS ---
EXAMINATION: US carotid duplex BI DATE: 03/04/2025 17:22 INDICATION: Carotid occlusion. Stenosis. TECHNIQUE: Grayscale, color Doppler, and pulsed Doppler images of the cervical carotid arteries were obtained. The degree of vessel stenosis is placed in one of the following categories: normal, <50%, 5 0-69%, >=70% but less than near-occlusion, near-occlusion, or total occlusion. Note that percent sten osis relative to normal distal artery lumen diameter is indirectly measured from velocity measurement s as described by Rebel, et al. Radiology 2003; 229:340-346. Notes: Normal: Peak systolic velocity <125 centimeters/sec and no plaque <50%. Peak systolic velocity <125 ( EDV <40; ICA/CCA PSV ratio <2.0; used these factors only a tandem lesions or low cardiac output or co ntralateral disease) 50-69 %: PSV 125-230 (EDV 40-100; ratio 2-4) >= 70% but less than near occlusion: PSV greater than 230 (EDV > 100; ratio> 4.0) Near Occlusion: PSV that is variable; markedly narrowed lumen Occlusion: Absent flow on color/spectral Doppler and no lumen on ngero scale. COMPARISON: None. FINDINGS: RIGHT: The right common carotid artery (CCA) peak systolic velocity (PSV) is 87 cm/s. The right internal car otid artery (ICA) PSV is 140 cm/s. The right ICA end-diastolic velocity (EDV) is 26 cm/s. The right I CA/CCA PSV ratio is 1.6. The external carotid artery (ECA) PSV is 243 cm/s. There is antegrade flow i n the right vertebral artery. LEFT: The left CCA PSV is 109 cm/s. The left ICA PSV is 155 cm/s. The left ICA EDV is 33 cm/s. The left ICA /CCA PSV ratio is 1.4. The ECA PSV is 206 cm/s. There is antegrade flow in the left vertebral artery . IMPRESSION: 1. 50-69% stenosis in the right internal carotid artery by sonographic criteria. 2. 50-69% stenosis in the left internal carotid artery by sonographic criteria. Reviewed, dictated and finalized at location A. IMPRESSION: 1. 50-69% stenosis in the right internal carotid artery by sonographic criteria . 2. 50-69% stenosis in the left internal carotid artery by sonographic criteria.
--- OUTSIDE RECORDS SUMMARY | 2025-03-04 16:48 | XMS_ITS | Clinical Summary ---
Author Organization [facility] Address [address] [place] [address] Care Team Providers Care Electrical Design Engineer Name Role Phone Kyler Duran MD Primary Care Provider + Kush Ugalde MD Unavailable [phone] [facility],non-owned Affiliates and Associated Physician Practices is amultiple site organization consisting of ambulatory clinics and hospital sitesin [place], [place], [place] and [place]. This disclosure is being madepursuant to the Care Everywhere program and may not contain all information available regarding this patient. Last updated 18.[facility] [employer] Allergies No known active allergies Medications * [...] Recorded Patient Health Questionnaire-2 Score 0 01/02/2024 [facility] of Occupat ional Health - Occupational Stress [...] place to sleep or slept in a [facility]p (including now)? No 12/06/2023 Sex and Gender Information Value Date Recorded Sex Assigned at Not on file Legal Sex Male 6:59 AM TRANSPLANT REGISTERED NURSE Gender Identity Not on file Sexual Orientation [...] Inhaled Oxygen Concentration 40% 12/28/2023 4:00 AM TRANSPLANT REGISTERED NURSE Weight 117.8 kg (259 lb 12. 8 oz) 01/07/2024 4:00 AM TRANSPLANT REGISTERED NURSE Height 190.5 cm (6' 3 ) 01/03/2024 4:09 AM TRANSPLANT REGISTERED NURSE reentered for BMI Body Mass Index 32.47 01/03/2024 4:09 AM TRANSPLANT REGISTERED NURSE Plan of Treatment Health Maintenance Due Date [...] Indicated MRSA Hx Comment:sputum 12/28/2023 01/03/2024 Insurance [facility] MANAGED MEDICARE ADV Advance Directives * Full Code (Latest Code Status on File) Date Activated Date Inactivated Comments 11/30/2023 6:52 PM 01/12/2024 4:02 PM Care Teams Electrical Design Engineer Relationship Specialty Start Date End Date Kyler Duran MD [address] [facility] [address] [place] [address] PCP - General Family Medicine 05/11/22 [place] [address] [address] Surgeon Orthopedic Surgery 05/11/22
--- OUTSIDE RECORDS SUMMARY | 2025-03-04 16:48 | XMS_ITS | CONTINUITY OF CARE DOCUMENT ---
Author Name franklinsaundra franklinsaundra Address Unknown Organization [facility] Address [address] [facility] [address] [facility] [address] [place] [address] Phone [phone] Care Team Providers Care Clothespin Drier Operator Name Role Phone Spencer Casas MD Unavailable [phone] NAHUN CADE MD Unavailable [phone] NAHUN CADE MD Unavailable PROBLEMS Condition Status Date Provider Notes Prediabetes-03/08/22 Glu 207 active Benito priest RN LAE active Elissa Jimenez Aortic stenosis, mild active Elissa pageeyer HTN active Spencer Casas MD Hyperlipidemia active Spencer Casas MD CAROTID-08/07 NEG completed - Spencer Casas MD CAD - 04/2010 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, TECHNICAL ASSOCIATE RCA, 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 Spencer [...] In-person encounter Office Visit Spencer Casas MD [facility] - In-person encounter Office Visit Spencer Casas MD [facility] - In-person encounter Office Visit Spencer Casas MD [facility] - In-person encounter Office Visit Spencer Casas MD [facility] CHF - In-person encounter Office Visit Spencer Casas MD [facility] Leg edema - In-person encounter Office Visit Spencer Casas MD [facility] - In-person encounter Office Visit Spencer Casas MD [facility] Leg pain - 01/11 TRESA's MILD/MOD DISEASE B/LDIZZINESSShortness of breath - In-person encounter Office Visit Spencer Casas MD [facility] - In-person encounter Office Visit Spencer Casas MD [facility] PVD - In-person encounter Office Visit Spencer Casas MD [facility] HTNHyperlipidemiaCAD - 04/2010 CATH, TECHNICAL ASSOCIATE RCA, CIRC and OM STENTSCarotid artery stenosis, <50% ICA b/lMyocardial infarction 12/1997ObesityTobacco use, quit - In-person encounter Office Visit Spencer Casas MD [facility] CAROTID-08/07 NEGCAD - 04/2010 CATH, TECHNICAL ASSOCIATE RCA, CIRC and OM STENTSCOPD - In-person encounter Office Visit Spencer Casas MD [facility] - In-person encounter Office Visit Spencer Casas MD [facility] - In-person encounter Office Visit Spencer Casas MD [facility] HTN - In-person encounter Office Visit Spencer Casas MD [facility] - In-person encounter Office Visit Spencer Casas MD [facility] - In-person encounter Office Visit Spencer Casas MD [facility] - In-person encounter Office Visit Yan Montelongo MD [facility] - In-person encounter Office Visit Yan Montelongo MD [facility] - In-person encounter Office Visit Spencer Casas MD [facility] DIZZINESS - In-person encounter Office Visit Spencer Casas MD [facility] CAD - 04/2010 CATH, TECHNICAL ASSOCIATE RCA, CIRC and OM STENTSLeg pain - 01/11 TRESA's MILD/MOD DISEASE B/L - In-person encounter Office Visit Spencer Casas MD [facility] Hyperlipidemia - In-person encounter Office Visit Spencer Casas MD [facility] Hyperlipidemia VITAL SIGNS Date Observation Value Provider Body Mass Index (Ratio) 37.10 kg/m2 Carolyne Stephen blood pressure, cuff size regular [facility] blood pressure, diastolic 69 mm[Hg] [facility] blood pressure, systolic 175 mm[Hg] [facility] pulse rate 68 /min [facility] oxygen saturation, oximetry 96 % [facility] respiratory rate E&M 15 /min Liana Bone illecassidy weight E&M 289 [lb_av] [facility] height E&M 74 [in_i] [facility] Body Mass Index (Ratio) 37.36 kg/m2 Spencer Casas MD blood pressure, cuff size regular [facility] blood pressure, diastolic 75 mm[Hg] Ja rret [...] mm[Hg] Suzette blood pressure, cuff size regular [facility] blood pressure, diastolic 78 mm[Hg] Ja rret [...] ra Jones height E&M 74 [in_i] Odalys Jones Body Mass Index (Ratio) 37.61 kg/m2 Ayleen enriquez Barbara blood pressure, diastolic 84 mm[Hg] Li [employer]kLogic blood pressure, systolic 142 mm[Hg] Suzette kLogic blood pressure, cuff size large Mi steffany [place] blood pressure, diastolic 84 mm[Hg] Mi steffany [place] blood pressure, systolic 142 mm[Hg] Fritz keyla [place] oxygen saturation, oximetry 99 % Lesly Alicea [...] Post oxygen saturation, oximetry 96 % Sena Post pulse rate 79 /min Sena Post respiratory [...] loredoer oxygen saturation, oximetry 95 % Janell Khai respiratory rate E&M 16 /min Janell Greene [...] Chance RN blood pressure, diastolic 73 mm[Hg] Jeremy Vyas blood pressure, systolic 127 mm[Hg] Walter Vyas pulse rate 89 /min Sarah Vyas oxygen saturation, oximetry 96 % Sarah Vyas respiratory rate E&M 16 /min Fadi Vyas weight E&M 271 [lb_av] Sarah Vyas blood pressure, diastolic, left arm 70 mm [Hg] Yue Choi blood pressure, systolic, left arm 103 mm [Hg] Yue Choi blood pressure, diastolic, right arm 62 m [...] [employer] 0-149 cholesterol, serum 152 mg/dL [employer] [id number] 0477/03 /06 LDL cholesterol, serum 112 mg/dL [facility] hemoglobin A1C, blood, as % of total hemoglobin 6.5 % [facility] protein, total, serum 7.3 g/dL [facility] albumin, serum 4.6 g/dL [facility] bilirubin, serum, total 0.8 mg/dL [facility] alkaline phosphatase, serum 60 1/L [facility] alanine aminotransferase (SGPT), serum 22 1/L [facility] aspartate aminotransferase (SGOT), serum 20 1/L [facility] calcium, serum 9.8 mg/dL [facility] blood glucose, random 123 mg/dL [facility] creatinine, serum 0.74 mg/dL [facility] urea nitrogen, blood 16 mg/dL [facility] carbon dioxide, serum, total 27 mmol/L [facility] chloride, serum 102 mmol/L [facility] potassium, serum 5.0 mmol/L [facility] sodium, serum 139 mmol/L [facility] triglyceride, serum, fasting 202 mg/dL [facility] HDL cholesterol, serum 57 mg/dL [facility] LDL cholesterol, serum 69 mg/dL [facility] cholesterol, serum 166 mg/dL [facility] LDL/HDL (low-density lipoprotein/high-de nsity lipoprotein) ratio 1.8 [...] Normal Absolute Neutrophil count 4352 cells/mcL [employer] [id number] Normal platelet count 265 THOUSAND/UL LinkLog 140-400 [...] Zafar smoking history, tot al pack/day 2 Lie Zafar cigarette use yes Lei Mariana i [...] 1+ Katy Karan smoking, year quit 2007 Ktay Baird ana lilia number of years as a smoker 35 a Katy Karan smoking, date started 1972 Katy Karan smoking history, tot al pack/day 2 Katy Karan cigarette use yes Katy Karan smoking status Former smoker Katy Karan social history josé manuel lombardi E&M [...] yes Janell gould smoking status Former smoker aJnell kamarabryanna social history revie wed E&M reviewed Benito Chance RN smoking status former smoker Benito Coon social history revie wed E&M reviewed Benito Chance RN social history revie wed E&M reviewed Benito Chance RN social history revie wed E&M reviewed Bneito Chance RN social history revie wed E&M [...] Payer name Policy type / Coverage type [place] red republican ID AARP MEDICARE ADVANTAGE ([facility] COMPLETE PPO) Other [id number] ADVANCE DIRECTIVES Name Date DISCUSSED - NO DECISION MADE TREATMENT PLAN Date Name Performer [id number],SLei [id number],S,w ill obtain echo and lab work C HF class III Lei Stephen [id number],S, H is updated medication list for this problem includes: Atorvastatin 80 Mg Tablet (Atorvastatin) ..... Take 1 tablet by mouth once daily at bedtime Lei Stephen [id number],S,d enies angina will obtain f/u echo and lab work H is updated medication list for this problem includes: Lisinopril 40 Mg Tablet (Lisinopril) ..... Take 1 tablet by mouth once daily Carvedilol 25 Mg Tablet (Carvedilol) ..... Take 1 tablet by mouth twice daily Clopidogrel 75 Mg Tablet (Clopidogrel) ..... Take 1 tablet by mouth once daily need appointment for refills Lei Stephen [id number],C,W ill increase lisinopril to 40mg for better [...] by mouth once a day Lei Stephen [id number],S,c lass III, complains of SOB and leg [...] by mouth once a day Lei Stephen [id number],S, W eight loss advised Elissa Jimenez [id number],C, H is updated medication list for this problem includes: Atorvastatin 80 Mg Tablet (Atorvastatin) ..... Take 1 tablet by mouth once daily at bedtime Elissa Jimenez [id number],C,W e will increase lisinopril to 20 mg [...] tablet by mouth twice daily Elissa Barbara [id number],C, H is updated medication list for this problem includes: Lisinopril 20 Mg Tablet (Lisinopril) ..... 1 tablet by mouth once a day Carvedilol 25 Mg Tablet (Carvedilol) ..... Take 1 tablet by mouth twice daily Clopidogrel 75 Mg Tablet (Clopidogrel) ..... Take 1 tablet by mouth once daily needs appointment Elissa Barbara [id number],JoseC ontinues to be CHF class III. He [...] mouth once daily needs appointment Elissa Jimenez [id number],S, W eight loss advised Elissa Jimenez [id number],C, H is updated medication list for this problem includes: Atorvastatin 80 Mg Tablet (Atorvastatin) ..... Take 1 tablet by mouth once daily at bedtime Elissa Jimenez [id number],C, P rior BP: 149/64 (02/15/2022) Labs Reviewed: [...] by mouth once a day Elissa Barbara [id number],C,P t admits to exertional dyspnea and neuropathy [...] by mouth once a day Elissa Jimenez [id number],C, W eight loss advised Elissa Jimenez [id number],C, H is updated medication list for this problem includes: Atorvastatin 80 Mg Tablet (Atorvastatin) ..... Take 1 tablet by mouth once daily at bedtime Elissa Jimenez [id number],C, B P today: 149/64 P rior BP: [...] by mouth once a day Elissa Jimenez [id number],C, Pt denies SOB and chest pain. Will [...] by mouth once a day Elissa Jimenez [id number],C, T he pt had an admission to [facility] due to Covid about 2 months ago. Since then, had significant leg swelling, which has improved significantly. Pt denies SOB and chest pain. Will obtain echo, venous duplex, BMP and proBNP. [facility] [id number],C, T he pt had an admission to [facility] due to Covid about 2 months ago. Since then, had significant leg swelling, which has improved significantly. Pt denies SOB and chest pain. Will obtain echo, venous duplex, BMP and proBNP. [facility] [id number],S, Elissa Duff [facility] [id number],S, Elissa Duff [facility] [id number],C, H is updated medication list for this problem includes: Atorvastatin 80 Mg Tablet (Atorvastatin) ..... Take 1 tablet by mouth every night Elissa Jimenez [id number],S, N o claudication. His updated medication list for this problem includes: Clopidogrel 75 Mg Tablet (Clopidogrel) ..... Take 1 tablet by mouth once a day Elissa Jimenez [id number],C, B P today: 142/84 P rior BP: 148/76 (10/06/2020) Labs Reviewed: C reat: 0.74 (05/26/2016) C hol: 152 (09/12/2018) HDL: 57 (09/12/2018) His updated medication list for this problem includes: Lisinopril 10 Mg Tablet (Lisinopril) ..... 1 tablet by mouth once a day Carvedilol 25 Mg Tablet (Carvedilol) ..... Take 1 tablet by mouth twice a day Elissa Vasquezal [id number],S, Elissa Omega mckeon [id number],C,P t denies SOB and chest pain. Overall [...] and mild aortic stenosis. We also discussed [facility] clinical trial. The following medications were [...] T he pt had an admission to [facility] due to Covid about 2 months ago. Since then, had significant leg swelling, which has improved significantly. Pt denies SOB and chest pain. Will obtain echo, venous duplex, BMP and proBNP. [facility]: T he pt had an admission to [facility] due to Covid about 2 months ago. Since then, had significant leg swelling, which has improved significantly. Pt denies SOB and chest pain. Will obtain echo, venous duplex, BMP and proBNP. [facility] Elissa Jacobs eyer Cardiology [facility] eyer Cardiology: H is updated medication list for this problem includes: Atorvastatin 80 Mg Tablet (Atorvastatin) ..... Take 1 tablet by mouth every night [facility] Card[facility]: N o claudication. His updated medication list for this problem includes: Clopidogrel 75 Mg Tablet (Clopidogrel) ..... Take 1 tablet by mouth once a day [facility]: B P today: 142/84 P rior BP: 148/76 (10/06/2020) Labs Reviewed: C reat: 0.74 (05/26/2016) C hol: 152 (09/12/2018) HDL: 57 (09/12/2018) His updated medication list for this problem includes: Lisinopril 10 Mg Tablet (Lisinopril) ..... 1 tablet by mouth once a day Carvedilol 25 Mg Tablet (Carvedilol) ..... Take 1 tablet by mouth twice a day [facility] Elissa Jacobs [facility]er Cardiology:Pt denies SOB [...] in [facility] due to being on Metformin. [facility] Cardiology:His [facility] ed medication list for this problem includes: Atorvastatin 80mg Tab (Atorvastatin calcium) ..... Take 1 tablet by mouth once daily at bedtime [facility] Cardiology:BP today: 148/76 P rior BP: 162/80 (10/17/2019) His updated medication list for this problem includes: Lisinopril 10 Mg Oral Tablet (Lisinopril) ..... One tab. daily Carvedilol 25 Mg Oral Tablet (Carvedilol) ..... One tab twice daily [facility] Cardiology:He could not participate in [facility] due to being on Metformin. [facility] Cardiology:No claudication. Suman lawson [facility] Cardiology:Doing wel l. No chest pain, SOB. Will continue current medications. His updated medication list for this problem includes: Lisinopril 10 Mg Oral Tablet (Lisinopril) ..... One tab. daily Clopidogrel Bisulfate 75 Mg Oral Tablet (Clopidogrel bisulfate) ..... Take 1 tablet by mouth once daily Carvedilol 25 Mg Oral Tablet (Carvedilol) ..... One tab twice daily [facility] Cardiology follow up :CHOL: 152 (09/12/2018) HDL: [...] IPID PANEL (7600) H EPATIC FUNCTION PANEL (46677) Bartolome Alicia Cardiology follow up :BP today: 182/96 P rior BP: 160/90 (05/30/2017) His updated medication list for this problem includes: Lisinopril 10 Mg Oral Tablet (Lisinopril) ..... One tab. daily Coreg 12.5 Mg Oral Tablet (Carvedilol) ..... One tab. twice daily Orders: C omplete Echo (CPT-54823) S [facility] Study Home (CPT-12092) Bartolome [facility] Cardiology follow up :His updated medication list for this problem includes: Lisinopril 10 Mg Oral Tablet (Lisinopril) ..... One tab. daily Plavix 75 Mg Oral Tablet (Clopidogrel bisulfate) ..... One tab. daily Coreg 6.25 Mg Oral Tablet (Carvedilol) ..... One tab. twice daily Orders: E KG (CPT-23787) C omplete Echo (CPT-82558) Spencer Casas MD Cardiology follow up :Orders: A rterial Duplex Bi-Lower EX (CPT-93188) Spencer Casas MD Cardiology:Exercise and weight l [...] (Atorvastatin calcium) ..... One tab. daily Bartolome [facility] Cardiology:BP today: 154/80 P rior BP: 150/68 (01/20/2015) His updated medication list for this problem includes: Lisinopril 10 Mg Tabs (Lisinopril) ..... One tab. daily Coreg 6.25 Mg Tabs (Carvedilol) ..... One tab. twice daily Bartolome Maral Cardiology:He denies laudication . Bartolome [facility] Cardiology:He denies chest pain Bartolome [facility] Cardiology:PFT's james wed moderate COPD. The pt [...] One tab. daily Orders: L IPID PANEL (1864) BP today: 109/70 Prior BP: 138/65 (04/07/2009) [...] daily Orders: H olter Monitor 24 Hr (CPT-73629) Spencer Casas MD occasional lighthead edness, dizziness: [...] rders: A rterial Duplex Lower Extremity Bilateral (CPT-47189) Spencer Casas MD office visit: H is [...] BP today: 127/66 Orders: C omplete Echo (CPT-45532) S [facility] Study (*) Spencer Casas MD new : H is updated medication list for this problem includes: Simvastatin 40 Mg Tabs (Simvastatin) ..... One tab. daily Spencer Casas MD new : H is updated medication list for this problem includes: Lisinopril 10 Mg Tabs (Lisinopril) ..... One tab. daily BP today: 127/66 Orders: C omplete Echo (CPT-89438) Spencer Casas MD new : H is updated medication list for this problem includes: Lisinopril 10 Mg Tabs (Lisinopril) ..... One tab. daily Simvastatin 40 Mg Tabs (Simvastatin) ..... One tab. daily Orders: E KG (CPT-35066) C arotid Duplex Bilateral (CPT-26203) S tress Test - Nuclear (09758) BP today: 127/66 Prior BP: / () [...] Duplex Bi-L ower EX DLCO Order - 79963 FRC Order - 95387 FVC Order - 20907 Full PFT Arterial Duplex Bi-L ower EX [...] completed EKG Spencer Casas MD completed SNOMED-CT: [id number] 115380 Current Medications Documented Spencer Casas MD completed Schedule Followup Spencer Casas MD 1 year com pleted EKG Spencer Casas MD completed SNOMED-CT: [id number] 634725 Current Medications Documented Spencer Casas MD completed BLOOD COUNT HEMOGLOBIN Spencer Casas MD completed EKG Spencer Casas MD completed EKG Spencer Casas MD completed EKG Spencer Casas MD completed EKG Benito Chance RN completed
== END 2025-03-04 16:24 | disposition home or self-care (01) ==
PROVIDERS: PCP Family Medicine Adolescent Medicine; Visit Provider Internal Medicine Cardiovascular Disease
DX: I65.23 Occlusion and stenosis of bilateral carotid arteries (principal)
CPT/HCPCS: 93880

== ENCOUNTER 2025-06-10 11:10 | Emergency (ER) | payer MEDICARE, SELFPAY ==
--- OUTSIDE RECORDS SUMMARY | 2025-06-10 11:34 | XMS_ITS | Clinical Summary ---
Author Organization [facility] Address [address] [place] [address] Care Team Providers Care Geologic Technician Name Role Phone Kyler Duran MD Primary Care Provider + Kush Ugalde MD Unavailable [phone] Source Comments [facility],non-owned Affiliates and Associated Physician Practices is amultiple site organization consisting of ambulatory clinics and hospital sitesin [place], [place], [place] and [place]. This disclosure is being madepursuant to the Care Everywhere program and may not contain all information available regarding this patient. Last updated 18.[facility] [employer] Allergies No known active allergies Medications * [...] Recorded Patient Health Questionnaire-2 Score 0 01/02/2024 [facility] [place] of Occupat ional Health - Occupational Stress [...] place to sleep or slept in a snf (including now)? 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 8 oz) 01/07/2024 4:00 AM RATTAN WORKER Height 190.5 cm (6' 3) 01/03/2024 4:09 AM RATTAN WORKER reentered for BMI Body Mass Index 32.47 01/03/2024 4:09 AM RATTAN WORKER Plan of Treatment Health Maintenance Due Date Last Done Comments HEPATITIS C SCREENING 02/01/1967 DTAP/TDAP/TD VACCINES (1 - Tdap) 02/06/1968 PNEUMOCOCCAL VACCINE 50+ (1 of 1 - PCV) 1999 ZOSTER VACCINE (1 of 2) 1999 Respiratory Syncytial Virus (RSV) Vaccine Pt: or over 60 yrs (1 - 1-dose 75+ series) 02/06/2024 COVID-19 VACCINE (1 - 2023- season) 2024 DEPRESSION SCREENING 10/31/2024 MEDICARE AWV CALENDAR YEAR 2024 INFLUENZA VACCINE (#1) 2025 , 08/21/2020, 10/09/2019, Additional history exists HEPATITIS B [...] Indicated MRSA Hx Comment:sputum 12/28/2023 01/03/2024 Insurance [facility] MANAGED MEDICARE ADV Advance Directives * Full Code (Latest Code Status on File) Date Activated Date Inactivated Comments 11/30/2023 6:52 PM 01/12/2024 4:02 PM Care Teams Geologic Technician Relationship Specialty Start Date End Date Kyler Duran MD [address] [facility] [address] [place] [address] PCP - General Family Medicine 05/11/22 [place] [id number] [address] Surgeon Orthopedic Surgery 05/11/22
--- NOTE | 2025-06-10 11:48 | ED.GENADULT ---
HPI - General Adult General Chief complaint: Cardiac Arrest/CPR Stated complaint: cardiac arrest Time Seen by Provider: 06/10/25 11:28 History of Present Illness HPI narrative: Patient 75-year-old gentleman presents emergency department with chief complaint of cardiac arrest. Per EMS report and family patient in complaining of a headache since yesterday today started feeling short of breath when EMS was called they arrived and found the patient have a room air saturation in the 70s the patient was placed on oxygen and brought to the ambulance from the house to the ambulance the patient became unresponsive lost a pulse and CPR was initiated patient had a run of ventricular fibrillation and was shocked multiple times the patient then went into asystole patient received multiple doses of epinephrine and start of unresponsiveness was at 10:24 a.m. upon arrival to the emergency department patient was still in asystole with compressions and place. Related Data Home Medications ?Medication ?Instructions ?Recorded ?Confirmed ?Last Taken ?Type collagenase clostridium histo. 250 1 applic topical DAILY 01/16/24 01/16/25 Unknown History unit/gram topical ointment Allergies Allergy/AdvReac Type Severity Reaction Status Date / Time empagliflozin (From Allergy Mild Redness of Verified 07/13/24 13:32 Jardiance) Skin Review of Systems Review of Systems: A 10 system review of systems was completed on the patient and is negative except for what is stated in the HPI. Nursing and ancillary documentation was reviewed. [facility] Past Medical History Medical History Pneumonia due to COVID-19 virus (12/2021) Hx of myocardial infarction Surgical History Surgical History Hx of heart artery stent Family History Family History Father Suicide Malignant neoplasm of prostate Mother Lung cancer Carcinoma of colon Other Diabetes mellitus Social History Social History Smoking status: Former smoker Tobacco type: cigarettes Second hand tobacco smoke exposure: No Smoking end date: 10/31/05 Drinks per week: 42 Alcohol use details: Beers Substance use: never Substance use type: does not use Living arrangements: with family Occupation/Education: retired Gender identity (if verbalized by the patient): Male Sexual Orientation (if Verbalized by the Patient): Straight or Heterosexual Spiritual care concerns: No Agree to blood products: Yes Exam Narrative: GENERAL: Ill-appearing, no signs of trauma unresponsive HEAD: Normocephalic, atraumatic. EYES: Fixed unresponsive. ENT: Nares clear, no rhinorrhea or epistaxis. Mucous membranes moist. Supraglottic airway in place NECK: Supple. CHEST: Clear to auscultation with bag-valve ventilation. HEART: No cardiac activity peripheral pulses present with CPR ABDOMEN: Soft, nondistended, EXTREMITIES: No signs of trauma. No edema. IO present in the right lower extremity SKIN: Warm, dry, no rash. NEURO: Unresponsive PSYCH: Unresponsive Medical Decision Making MDM Narrative Medical decision making narrative: Differential diagnosis includes ACS, dysrhythmia, pulmonary embolism, ACLS protocols were initiated pre-hospital by EMS and continued upon arrival to the emergency department. ACLS protocols were continued with no return of spontaneous circulation the patient at in our down time was still asystole with no cardiac activity on bedside ultrasound the patient was pronounced at 11:25 a.m. Discharge Plan Discharge Clinical Impression: Cardiopulmonary arrest Patient Disposition: Condition: Patient Language: Citizen Of [place] Prescriptions: No Action collagenase clostridium histo. 250 unit/gram ointment 1 applic topical DAILY pantoprazole 40 mg tablet,delayed release (DR/EC) 40 mg PO QAM Qty: 90 3RF atorvastatin 80 mg tablet 80 mg PO DAILY Qty: 90 2RF Iron 325 (65 Fe) MG Oral Tablet See Rx Instructions .ROUTE .COMPLEX Qty: 90 0RF Dose Instruction: Take 1 tablet by mouth once daily Rx Instructions: Take 1 tablet by mouth once daily trazodone 100 mg tablet 100 mg PO QHS Qty: 30 9RF carvedilol 3.125 mg tablet See Rx Instructions .ROUTE .COMPLEX Qty: 60 6RF Dose Instruction: TAKE 1 TABLET BY MOUTH EVERY 12 HOURS WITH FOOD Rx Instructions: TAKE 1 TABLET BY MOUTH EVERY 12 HOURS WITH FOOD Entresto 24-26 mg tablet See Rx Instructions .ROUTE .COMPLEX Qty: 60 5RF Dose Instruction: Take 1 tablet by mouth twice daily Rx Instructions: Take 1 tablet by mouth twice daily paroxetine HCl 20 mg tablet See Rx Instructions .ROUTE .COMPLEX Qty: 180 1RF Dose Instruction: Take 2 tablets by mouth once daily Rx Instructions: Take 2 tablets by mouth once daily spironolactone 25 mg tablet See Rx Instructions .ROUTE .COMPLEX Qty: 30 5RF Dose Instruction: Take 1 tablet by mouth once daily Rx Instructions: Take 1 tablet by mouth once daily Follow-up/Referrals: Kyler Duran MD [Primary Care Provider] - Time of Disposition: 11:25
--- NOTE | 2025-06-10 11:59 | PC.NURSE ---
1107: patient arrival to the ED via EMS with CPR in progress 1109- pulse myszl-spdufybh-bygmdzcfonfe resumed 1110-epi given-compressions resumed 1111-pulse zaljm-ilglqozj-zgtngzmzxebt resumed 1113-epi given- compressions resumed 1114- pulse check- asystole- compressions resumed-bicarb given 1116- pulse check- asystole- epi given- compressions resumed 1116-bicarb given-compressions continued 1119-pulse becnf-pcaryeiw-oog given-compressions resumed 1122-pulse supko-cvtdabnu-vhi given-bicarb given-compressions resumed 1125-pulse hmopd-rthrwgqj-smma of called [address] Steiner after confirming no cardiac activity with ultrasound at bedside
== END 2025-06-10 13:50 | disposition expired ==
PROVIDERS: Emergency Provider Emergency Medicine; PCP Family Medicine Adolescent Medicine
DX: I46.9 Cardiac arrest, cause unspecified (principal); I25.2 Old myocardial infarction; Z87.891 Personal history of nicotine dependence
CPT/HCPCS: 92950; 96374; 96375; 99285; J0168; J0461